=== PATIENT | male | born 1955 | race Caucasian/White ===

== ENCOUNTER → 2017-08-18 | Outpatient (CLI) | payer OTHER ==
[~2017-08-18] MED LIST: ALPRAZOLAM; CARDURA1 MG PO; COZAAR; OXYCODONE HCL5 M1 PO; OXYCONTIN10 M1 PO; PERCOCET 5-3251 EACH PO; SYNTHROID
== END ==
LOC: HYPER 06:57
DX: E11.622 Type 2 diabetes mellitus with other skin ulcer (principal); L89.154 Pressure ulcer of sacral region, stage 4; L98.491 Non-pressure chronic ulcer of skin of other sites limited to breakdown of skin; S80.812A Abrasion, left lower leg, initial encounter; S80.811A Abrasion, right lower leg, initial encounter; E11.51 Type 2 diabetes mellitus with diabetic peripheral angiopathy without gangrene; E11.40 Type 2 diabetes mellitus with diabetic neuropathy, unspecified; I10 Essential (primary) hypertension; E78.5 Hyperlipidemia, unspecified; G89.4 Chronic pain syndrome; M17.11 Unilateral primary osteoarthritis, right knee; Z96.653 Presence of artificial knee joint, bilateral; X58.XXXA Exposure to other specified factors, initial encounter; Y93.89 Activity, other specified; Y92.89 Other specified places as the place of occurrence of the external cause; Y99.8 Other external cause status

== ENCOUNTER → 2017-10-29 | Outpatient (CLI) | payer OTHER ==
[~2017-10-29] MED LIST changes: +ADMELOG100 UNIT/1 PO; -ALPRAZOLAM; +AMBIEN 5 MG TABL5 M1 PO; +ASPIR 8181 MG PO; +COLACE100 MG PO; +DOXYCYCLINE 10100 MG PO; +FLOMAX0.4 MG PO; +GLIPIZIDE 10 MG10 MG PO; +LEVEMIR SUBQ; +LOPRESSOR25 PO; +LOVASTATIN 20 M20 MG PO; +MIRALAX17 GM PO; +NORVASC10 MG PO; +ONDANSETRON HCL4 M2 PO; +OXYCODONE HCL30 MG PO; +OXYCONTIN20 M1 PO; +OXYCONTIN60 MG PO; +PRINIVIL20 MG PO; +PROTONIX40 M1 PO; +ROXICODONE30 M1 PO; +SENNA8.6 MG PO; -SYNTHROID; +SYNTHROID88 MCG PO; +TRAZODONE HCL50 MG PO; +TYLENOL325 MG PO; +UNICOMPLEX M TA1 TA1 PO; +VITAMIN D1000 UNI1 PO; +XANAX 0.5 MG0.5 MG PO; +ZYRTEC 10 MG TA10 MG PO; +[UNRECOGNIZED DRUG - OTHER] PO
== END ==
LOC: HYPER 06:51
DX: E11.622 Type 2 diabetes mellitus with other skin ulcer (principal); L97.811 Non-pressure chronic ulcer of other part of right lower leg limited to breakdown of skin; L89.894 Pressure ulcer of other site, stage 4; L98.491 Non-pressure chronic ulcer of skin of other sites limited to breakdown of skin; S80.211A Abrasion, right knee, initial encounter; E11.40 Type 2 diabetes mellitus with diabetic neuropathy, unspecified; E11.51 Type 2 diabetes mellitus with diabetic peripheral angiopathy without gangrene; I10 Essential (primary) hypertension; I89.0 Lymphedema, not elsewhere classified; G89.4 Chronic pain syndrome; L03.116 Cellulitis of left lower limb; Z96.653 Presence of artificial knee joint, bilateral; Z79.4 Long term (current) use of insulin; Z68.41 Body mass index [BMI] 40.0-44.9, adult; X58.XXXA Exposure to other specified factors, initial encounter; Y93.89 Activity, other specified; Y92.89 Other specified places as the place of occurrence of the external cause; Y99.8 Other external cause status

== ENCOUNTER 2017-12-19 10:37 | Emergency (ER) | payer OTHER, MEDICARE ==
[~2017-12-19] VITALS: Ht 177.8 cm; Wt 131.5 kg
--- NOTE | ~2017-12-19 | EKG ---
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
[2017-12-19] MEDS ORDERED: ASPIRIN325 PO (10:52)
[2017-12-19] MEDS ORDERED: PRAVACHOL20 MG PO (10:57)
[2017-12-19] MEDS ORDERED: ROXICODONE30 M1 PO (10:58)
[2017-12-19] MEDS ORDERED: NOVOLOG100 UNIT/1 SUBQ (10:59)
[2017-12-19 11:46] LABS: HEMATOCRIT 44.1 % (42.0-52.0); MCH 28.6 pg (26.0-34.0); MCV 84.3 fL (80.0-100.0); RBC 5.23 mil/uL (4.50-6.00); RDW 15.4 % (10.5-14.5); WBC 9.3 thou/uL (4.0-11.0)
[2017-12-19 11:54] LABS: ANION GAP 6 mmol/L (7-16); BUN 18 mg/dL (7-18); CALCIUM 9.4 mg/dL (8.5-10.1); CHLORIDE 100 mmol/L (98-107); CO2 28 mmol/L (21-32); GLUCOSE 145 mg/dL (74-106); POTASSIUM 3.7 mmol/L (3.5-5.1); SODIUM 134 mmol/L (136-145)
[2017-12-19 12:02] LABS: ALBUMIN 3.5 g/dL (3.4-5.0); SGOT 26 U/L (15-37); SGPT 47 U/L (30-65); TOTAL BILIRUBIN 0.3 mg/dL (<0.1-1.0); TOTAL PROTEIN 7.8 g/dL (6.4-8.2); TROPONIN-I <0.06 ng/mL (<0.06)
[2017-12-19] MEDS ORDERED: LYRICA 50 MG50 MG PO (12:18)
== END 2017-12-19 13:15 | disposition home or self-care (01) ==
LOC: ER 10:37
PROVIDERS: Emergency Medicine
DX: E11.40 Type 2 diabetes mellitus with diabetic neuropathy, unspecified (principal); I10 Essential (primary) hypertension; B19.20 Unspecified viral hepatitis C without hepatic coma; Z79.4 Long term (current) use of insulin; Z79.899 Other long term (current) drug therapy; Z88.5 Allergy status to narcotic agent; Z88.8 Allergy status to other drugs, medicaments and biological substances; Z91.018 Allergy to other foods

== ENCOUNTER 2018-07-03 13:43 | Inpatient (IN) | payer OTHER, MEDICARE ==
[2018-07-03] VITALS (18 sets, daily range): BP systolic 76–97; BP diastolic 43–54
[~2018-07-03] VITALS: Ht 177.8 cm; Wt 108.0 kg
--- NOTE | ~2018-07-03 | HC ---
[facility] [place] [address] CONSULTATION Name: HORTENCIA PATEL Room #: 241-P [facility] IN M.R.#: [id number] Admission: 07/03/18 ������������������ Attend Phys: Ru Rowe MD Discharge: ������������������ Date of : 51 Report #: [id number] THIS REPORT FOR: //name// CC: Zoltan Rowe [facility] Akkulugari DATE OF SERVICE: 07/06/2018 WOUND CARE CONSULTATION PERSONAL PHYSICIAN: Zoltan Vigil MD CHIEF COMPLAINT: Decubitus ulcers. HISTORY OF PRESENT ILLNESS: This is a 62-year-old white male, with longstanding history of diabetes, who is a penitentiary resident, was brought in to the Emergency Department for septic shock and respiratory failure. The patient, upon admission, was noted to have sacral decubitus ulcers as well as decubitus ulcers on his left lower extremity. The patient himself is in the ICU and somewhat sedated and confused and unable to give much history at this time. Nursing staff states that all these ulcerations were present upon admission. PAST MEDICAL HISTORY: Significant for diabetes, hepatitis C, previous right jrlsq-vzk-cotm knee amputation, hypertension, anxiety, cervical fusion. CURRENT MEDICATIONS: Multiple, I reviewed the patient's medication list. DRUG ALLERGIES: CODEINE, FENTANYL, GABAPENTIN, HEPARIN AND MORPHINE. SOCIAL HISTORY: The patient resides in a care facility. Does not smoke or drink alcohol. FAMILY HISTORY: Not pertinent to current medical condition. REVIEW OF SYSTEMS: Unobtainable secondary to the patient's confused state. PHYSICAL EXAMINATION: VITAL SIGNS: The patient is afebrile. Vital signs are stable. GENERAL: This is an awake and oriented only to person, but not place and time white male who is in the ICU. HEENT: Normocephalic, atraumatic. Mucous membranes are somewhat dry. Pupils are round. Sclerae are white. NECK: Otherwise, supple, nontender. LUNGS: Slightly diminished breath sounds heard throughout. HEART: Regular. [address] [address] CONSULTATION Name: HORTENCIA PATEL Colby Room #: [facility] IN M.R.#: [id number] Admission: 07/03/18 ������������������ Attend Phys: Ru Rowe MD Discharge: ������������������ Date of : 51 Report #: [id number] ABDOMEN: Obese, soft, otherwise nontender. SKIN: In the sacrococcygeal region, there is a deep tissue injury with some ecchymotic regions noted with shearing forces noted along the top of this. Surrounding this is some blanchable erythema. At this time, there is no evidence of any obvious open ulcerations. EXTREMITIES: Right drxoy-zyt-yusb amputation is noted with intact stump. Left lower extremity has superficial abrasions to his left knee and pretibial region as well as a deep tissue injury along the lateral aspect of the left foot. Distal pulses are intact. NEUROLOGIC: Cranial nerves 2-12 grossly intact. Motor and sensory grossly intact. LABORATORY DATA: White count 6.2, hemoglobin 10.2. Potassium is 2.6, albumin is 2.0. IMPRESSION: 1. Deep tissue injury to the sacrococcygeal region, present on admission. 2. Deep tissue injury to the left lateral foot, present on admission. 3. Abrasions, left pretibial region x 2. 4. Diabetes mellitus. 5. Respiratory failure. 6. Protein calorie malnutrition -- severe, albumin 2.0. 7. Generalized debility. PLAN: At this time, we will place barrier cream over the sacrococcygeal decubitus ulcer. We will place the patient on low air loss mattress and will be turned every 2 hours. We will put foam dressings over the left pretibial wounds as well as the left lateral foot ulceration and change 3 times weekly. We will use Prevalon boot on the left foot for protection to the heel. Make sure we maximize the patient's oral protein supplementation when able. When able, we will also utilize physical and occupational therapy for strengthening. We will continue all other current medications and continue to follow the patient. ��������������������������������������������� ���������������������������������������� By: ��������������������������������������������� 0837 [id number] Sebastien Martines MD /britt
[~2018-07-03 13:43] MED LIST changes: +ASPIRIN325 PO; +LYRICA 50 MG50 MG PO; +NOVOLOG100 UNIT/1 SUBQ; +PRAVACHOL20 MG PO
[2018-07-03 14:06] LABS: ABSOLUTE NEUTROPHILS 8.7 thou/uL (1.4-8.2); BASOPHILS 0.7 % (0.0-2.0); HEMOGLOBIN 12.1 gm/dL (14.0-18.0); LYMPHOCYTES 10.9 % (24.0-44.0); MCHC 32.7 g/dL (28.0-37.0); MCV 76.4 fL (80.0-100.0); POLYS 81.4 % (36.0-66.0); RBC 4.84 mil/uL (4.50-6.00); RDW 17.9 % (10.5-14.5); WBC 10.6 thou/uL (4.0-11.0)
[2018-07-03 14:17] LABS: ANION GAP 12 mmol/L (7-16); BUN 49 mg/dL (7-18); CHLORIDE 103 mmol/L (98-107); CO2 25 mmol/L (21-32); CREATININE 6.1 mg/dL (0.7-1.3); GLUCOSE 170 mg/dL (74-106); POTASSIUM 4.2 mmol/L (3.5-5.1); SODIUM 140 mmol/L (136-145)
[2018-07-03 14:26] LABS: TROPONIN-I <0.06 ng/mL (<0.06)
[2018-07-03 14:35] LABS: PLATELET COUNT 157 thou/uL (150-400); PLATELET ESTIMATE NORMAL
[2018-07-03 15:04] LABS: BE(vivo) -2.2 mmol/L (-2 to +3); HCO3 22.2 mmol/L (22.0-26.0); PCO2 36.6 mmHg (35.0-45.0); PO2 130.1 mmHg (80.0-100.0); sO2 98.6 % (92.0-98.0)
[2018-07-03] MEDS ORDERED: NORVASC10 MG PO (15:13)
[2018-07-03] MEDS ORDERED: CARDURA4 MG PO (15:13)
[2018-07-03] MEDS ORDERED: LEVEMIR SUBQ (15:16)
[2018-07-03] MEDS ORDERED: NOVOLOG100 UNIT/1 SUBQ (15:17)
[2018-07-03] MEDS ORDERED: ENOXAPARIN40 MG/0.1 SUBQ (15:20)
[2018-07-03] MEDS ORDERED: ALPRAZOLAM 0.50.5 M1 PO (15:21)
[2018-07-03] MEDS ORDERED: COLACE100 MG PO (15:22)
[2018-07-03] MEDS ORDERED: SYNTHROID88 MCG PO (15:23)
[2018-07-03] MEDS ORDERED: LYRICA 50 MG50 MG PO (15:24)
[2018-07-03] MEDS ORDERED: PRO-STAT LIQUID30 M1 PO (15:25)
[2018-07-03] MEDS ORDERED: METOPROLOL TART25 MG PO (15:25)
[2018-07-03] MEDS ORDERED: FLOMAX0.4 MG PO (15:26)
[2018-07-03] MEDS ORDERED: THEREMS-M1 EACH PO (15:27)
[2018-07-03] MEDS ORDERED: VITAMINC500 PO (15:28)
[2018-07-03] MEDS ORDERED: TRAZODONE HCL50 MG PO (15:28)
[2018-07-03] MEDS ORDERED: VITAMIN D2000 UNIT PO (15:32)
[2018-07-03] MEDS ORDERED: IPRAT-ALBUT 0.5-3 ML INH (15:35)
[2018-07-03] MEDS ORDERED: DILAUDID4 MG PO (15:35)
[2018-07-03] MEDS ORDERED: MIRALAX17 GM PO (15:36)
[2018-07-03] MEDS ORDERED: ONDANSETRON HCL4 M2 PO (15:36)
[2018-07-03] MEDS ORDERED: SENNA8.6 MG PO (15:37)
[2018-07-03 16:54] LABS: ALBUMIN 2.4 g/dL (3.4-5.0); TOTAL PROTEIN 6.9 g/dL (6.4-8.2)
--- NOTE | 2018-07-03 18:43 | NUR ---
ADMITTED PATIENT TO ROOM AT THIS TIME. HE IS ON A BIPAP. TEMP IS STILL HIGH. TYLENOL JUST ADMINISTERED RECTALLY. WILL WAIT TO SEE EFFECTIVENESS. HE IS NOT RESPONISIVE TO VOICE OR TOUCH.
[2018-07-03 18:59] LABS: TSH 1.777 uIU/mL (0.358-3.740)
[2018-07-03 21:52] LABS: ABSOLUTE NEUTROPHILS 7.8 thou/uL (1.4-8.2); BASOPHILS 0.3 % (0.0-2.0); EOSINOPHILS 0.2 % (0.0-3.0); HEMATOCRIT 38.7 % (42.0-52.0); HEMOGLOBIN 12.3 gm/dL (14.0-18.0); LYMPHOCYTES 10.9 % (24.0-44.0); MCH 24.9 pg (26.0-34.0); MCHC 31.8 g/dL (28.0-37.0); MCV 78.2 fL (80.0-100.0); MONOCYTES 5.7 % (1.0-8.0); PLATELET COUNT 149 thou/uL (150-400); POLYS 82.9 % (36.0-66.0); RBC 4.96 mil/uL (4.50-6.00); RDW 18.7 % (10.5-14.5); WBC 9.4 thou/uL (4.0-11.0)
[2018-07-03 22:02] LABS: APTT 49.9 Seconds (24.5-32.8); CALCIUM 7.6 mg/dL (8.5-10.1); CREATININE 6.7 mg/dL (0.7-1.3); FIBRINOGEN 502.4 mg/dL (210-360); INR 1.3; POTASSIUM 3.8 mmol/L (3.5-5.1); PROTIME 13.1 Seconds (9.3-11.4)
[2018-07-03 22:09] LABS: ALBUMIN 2.2 g/dL (3.4-5.0); TOTAL BILIRUBIN 0.8 mg/dL (<0.1-1.0); TOTAL PROTEIN 6.7 g/dL (6.4-8.2)
[2018-07-03 22:30] LABS: BE(vivo) -6.6 mmol/L (-2 to +3); HCO3 18.2 mmol/L (22.0-26.0); PCO2 33.9 mmHg (35.0-45.0); PO2 83.4 mmHg (80.0-100.0); pH 7.347 (7.360-7.450); sO2 95.9 % (92.0-98.0)
--- NOTE | 2018-07-03 22:40 | NUR ---
Pt is being transfered to ICU due to hypotensive and severe sepsis. He appears lethargic and somnolent. Open eyes for painful stimulation. Current on BIPAP. BP/MAP low noted. NS bolus is in progress. He has fever of 102.6 upon arrival. Cold wash clots applied. Hx obtained from old medical record and NH recrods. Assessmetn is completed. Will start sepsis protocol as orders.
--- NOTE | 2018-07-03 23:00 | NUR ---
Pt is not able to sign consent for central line placement due to altered mental status changes. This RN attempted to call emergency contact w/o any success. It seems like phone number that provide by [facility] isn't correct. Will notify when he gets here.
--- NOTE | 2018-07-03 23:58 | NUR ---
PT LETHAGIC BUT OPENS EYES AND RESPONDS TO VERBAL AND PAINFUL STIMULI. SOFT BP. O2 SATS STABLE ON BIPAP. MINIMAL URINE OUTPUT FROM GURROLA. HR STABLE. SEPSIS SCREEN POSITIVE. NOTIFIED PROJECT PRODUCTION ENGINEER SCENIC ARTIST FOR HOSPITALIST OF PATIENT STATUS. DR STOCKTON ROUNDED ON PATIENT. ORDER RECEIVED TO TRANSFER PT TO ICU FOR SEPSIS PROTOCOL. PT TRANSFERED TO ICU AROUND 2213. REPORT GIVEN TO ALTERATION WORKROOM SUPERVISOR AT BEDSIDE.
[2018-07-04] VITALS (101 sets, daily range): BP systolic 95–132; BP diastolic 52–75
[2018-07-04 02:11] LABS: CALCIUM 7.3 mg/dL (8.5-10.1); CREATININE 6.5 mg/dL (0.7-1.3); POTASSIUM 3.9 mmol/L (3.5-5.1)
[2018-07-04 03:24] LABS: URINE BILIRUBIN 1+ (Negative); URINE BLOOD 3+ (Negative); URINE CLARITY CLOUDY; URINE COLOR YELLOW; URINE GLUCOSE-RANDOM* NEGATIVE (Negative); URINE KETONES TRACE (Negative); URINE NITRITE-REFLEX NEGATIVE (Negative); URINE PROTEIN (DIPSTICK) 2+ (Negative); URINE SPECIFIC GRAVITY 1.025 (1.005-1.035); URINE UROBILINOGEN 0.2 E.U./dl (0.2-1.0)
[2018-07-04 03:33] LABS: URINE LEUKOCYTES-REFLEX 3+ (Negative)
[2018-07-04 03:36] LABS: CASTS None Seen /LPF (None Seen); CRYSTALS None Seen /LPF (None Seen); MUCUS 4-6 Moderate strn/LPF (None Seen); SQUAMOUS 0-3 Few /LPF (0-3); URINE WBC-REFLEX >25 Many /HPF (0-5); WBC CLUMPS Moderate (None Seen)
[2018-07-04 05:51] LABS: HEMATOCRIT 35.4 % (42.0-52.0); HEMOGLOBIN 11.4 gm/dL (14.0-18.0); MCH 24.9 pg (26.0-34.0); MCHC 32.1 g/dL (28.0-37.0); MCV 77.5 fL (80.0-100.0); RBC 4.57 mil/uL (4.50-6.00); RDW 18.3 % (10.5-14.5); WBC 9.9 thou/uL (4.0-11.0)
[2018-07-04 06:02] LABS: CALCIUM 7.2 mg/dL (8.5-10.1); CREATININE 6.6 mg/dL (0.7-1.3); MAGNESIUM 1.7 mg/dL (1.8-2.4); POTASSIUM 3.9 mmol/L (3.5-5.1)
--- NOTE | 2018-07-04 07:00 | NUR ---
Pt remains in critical conditions. He is more reponses this am. Urine output has been picking up some. MAP > 65 mmHg with pressor. BS elevated this am. Start insulin gtt per protocol. Report handed of to am shift RN.
--- NOTE | 2018-07-04 08:53 | NUR ---
ORDER REC'D FOR OT EVAL. TRANSFER TO ICU AND WILL BE PLACED ON HOLD PER PROTOCOL. WILL AWAIT RESUME OT ORDERS WHEN APPROPRIATE.
[2018-07-04] MEDS ORDERED: CYCLOBENZAPRINE5 MG PO (09:38)
[2018-07-04] MEDS ORDERED: MUCINEX600 MG PO (09:39)
[2018-07-04] MEDS ORDERED: OXYCONTIN40 MG PO (09:40)
[2018-07-04 11:46] LABS: URINE CREATININE-RANDOM* 125.6 mg/dL
[2018-07-04 12:08] LABS: BE(vivo) -5.9 mmol/L (-2 to +3); HCO3 19.9 mmol/L (22.0-26.0); PCO2 40.3 mmHg (35.0-45.0); PO2 66.3 mmHg (80.0-100.0); sO2 91.5 % (92.0-98.0)
[2018-07-04 12:09] LABS: pH 7.312 (7.360-7.450)
[2018-07-04 14:02] LABS: CALCIUM 7.4 mg/dL (8.5-10.1); POTASSIUM 3.5 mmol/L (3.5-5.1)
--- NOTE | 2018-07-04 18:37 | NUR ---
END OF SHIFT NOTE. PT COMPLETED SEPSIS PROTOCOL TODAY. LEVOPHED AT 2MCG/MIN URINE OUTPUT IMPROVED. TOLORATING BIPAP. CT ABD CALLED TO DR. STOCKTON AND DR. BENAVIDES. ULTRA SOUND OF ABD DONE TODAY. INSULIN GTT. MORE ALERT, FOLLOWS COMMANDS, CONFUSED SPEECH AT TIMES. CREAM TO SACRAL WOUND.
[2018-07-05] VITALS (55 sets, daily range): BP systolic 93–137; BP diastolic 46–76
[2018-07-05 05:04] LABS: BE(vivo) -4.9 mmol/L (-2 to +3); PCO2 36.5 mmHg (35.0-45.0); PO2 86.2 mmHg (80.0-100.0); pH 7.357 (7.360-7.450); sO2 96.2 % (92.0-98.0)
[2018-07-05 05:09] LABS: HEMOGLOBIN 10.3 gm/dL (14.0-18.0); MCH 24.7 pg (26.0-34.0); MCHC 32.1 g/dL (28.0-37.0); MCV 77.1 fL (80.0-100.0); RBC 4.15 mil/uL (4.50-6.00); RDW 18.3 % (10.5-14.5); WBC 8.5 thou/uL (4.0-11.0)
[2018-07-05 05:22] LABS: ALBUMIN 1.9 g/dL (3.4-5.0); CALCIUM 7.2 mg/dL (8.5-10.1); CREATININE 5.3 mg/dL (0.7-1.3); POTASSIUM 3.3 mmol/L (3.5-5.1); TOTAL BILIRUBIN 0.4 mg/dL (<0.1-1.0); TOTAL PROTEIN 5.4 g/dL (6.4-8.2)
--- NOTE | 2018-07-05 08:02 | NUR ---
ASSUMED CARE OF PT AT 1900. PT REMAINS DROWSY, DOES WAKE UP AND FOLLOW COMMANDS. ORIENTED TO SELF AND PLACE. REMAINS FORGETFULL ON RECENT EVENTS. PT CONTRACTED ON HIS HANDS AND L LEG. SR ON THE MONITOR. PT TITRATED OFF LEVO GTT AT 0230. TOLERATING WELL. IMPROVED UO. NO BM, BUT PT PASSING FLATUS. PT TURNED Q2 HOUR AND GIVEN A BATH THIS AM. PT MAKING PROGRESS TOWARDS GOALS.
--- NOTE | 2018-07-05 11:12 | HC ---
[facility] [place] [address] CONSULTATION Name: HORTENCIA PATEL Colby Room #: 241-P [facility] IN M.R.#: [id number] Admission: 07/03/18 ������������������ Attend Phys: Ru Rowe MD Discharge: ������������������ Date of : 51 Report #: [id number] THIS REPORT FOR: //name// CC: Zoltan Rowe Amos Akkulugari DATE OF SERVICE: 07/04/2018 REASON FOR CONSULTATION: I was asked to evaluate concerning septic shock, acute renal failure in the setting of diabetes. HISTORY OF PRESENT ILLNESS: The patient is a 62-year-old [facility] resident, at [facility] with a history of diabetes, hypertension, marked debility, was found very short of breath and nonverbal yesterday afternoon. By report, an hour earlier, he was doing reasonably well. EMS was called. He was found to be hypoxic and hypertensive. Given nitro paste. Placed on BiPAP. Ultimately intubated. In the Emergency Room, he was hypotensive. He was found to be in acute renal failure with a creatinine up to 6. Indwelling Lrason catheter was placed. He now is on BiPAP. He is verbal now. Has complained of some lower abdominal discomfort. No vomiting. Intermittent loose cough with minimal sputum production. No chest pain. No nausea or vomiting. He has been constipated. He does have sacral decubitus. He had a previous right AKA. REVIEW OF SYSTEMS: A 10-point review of systems is negative other than described above. PAST MEDICAL HISTORY: Cellulitis, diabetes, hepatitis C, urinary retention, hypertension, BPH, anxiety, back surgeries, knee surgery, abdominal surgery, cervical fusion. ALLERGIES: CODEINE, FENTANYL, GABAPENTIN, HEPARIN, MORPHINE. MEDICATIONS: As noted on his MAR, which were reviewed including vancomycin, Zosyn and Levaquin. FAMILY HISTORY: Noncontributory. SOCIAL HISTORY: Nonsmoker. Does use alcohol. No recreational drugs. PHYSICAL EXAMINATION: VITAL SIGNS: Maximum temperature is 102.9 degrees, currently afebrile, blood pressure improved on Levophed drip. He has received over 4 liters of IV fluid. GENERAL: He was obese. He was on BiPAP. He was verbal and appeared oriented. SKIN: With wounds to his sacrum. There are some excoriations. There was some evidence of bruising. No other rashes. [facility] [address] [place] [address] CONSULTATION Name: HORTENCIA PATEL Room #: 241-P [facility] IN M.R.#: [id number] Admission: 07/03/18 ������������������ Attend Phys: Ru Rowe MD Discharge: ������������������ Date of : 51 Report #: [id number] HEENT: Eyes without scleral icterus. Mouth without mucositis. NECK: Supple. No palpable adenopathy. LUNGS: Coarse bilaterally, mostly in the bases. HEART: Regular, without murmur, gallop or rub. ABDOMEN: Obese. Mildly distended, had no hepatosplenomegaly. No definite mass. EXTREMITIES: Without cyanosis, clubbing or edema. He has a right AKA with incision well approximated. Right IJ catheter site unremarkable with no erythema or drainage. Cranial nerves intact. Able to move both upper and lower extremities. LABORATORY STUDIES: Procalcitonin 10.6, lactate 1.5, hemoglobin 11.4, WBC 9.9 with normal differential, platelet count 141,000. Sodium 137, potassium 3.9, bicarbonate 20, creatinine 6.6. Liver function test normal. Blood culture is negative today. Chest x-ray with bibasilar atelectasis, infiltrate. Urinalysis, many wbc's, rbc's and positive urine for bacteria. Urine culture is pending. IMPRESSION: A 62-year-old [facility] resident with: 1. Multisystem failure including respiratory failure, encephalopathy and acute renal failure. Does have evidence of cystitis. I am awaiting imaging studies to further evaluate the abdomen. Unclear if he is obstructed at this time. 2. Respiratory failure with basilar atelectasis, infiltrates. Could have aspirated during this event or leading up to it. His encephalopathy has improved after hydration and oxygen supplementation. No evidence at this time to support stroke. 3. Underlying diabetes. Unclear as to his renal function predating this. 4. Previous right lower extremity amputation. RECOMMENDATION: We will continue with broad antibiotic coverage for both healthcare-associated pneumonia and urinary tract infection. He will remain in ICU on sepsis protocol. IV fluids and vasopressors as necessary. Nephrology is assisting in his acute renal failure. Monitor and treat diabetes, blood glucose control. We will adjust his antibiotics pending further cultures. ��������������������������������������������� <ELECTRONICALLY SIGNED> ���������������������������������������� By: Juancho Humphreys MD ��������������������������������������������� 07/05/18 1112 1125 0010 Juancho Humphreys MD /nt
--- NOTE | 2018-07-05 11:27 | NUR ---
VASCULAR ACCESS ROUNDING- PATIENT CONTINUES IN ICU ON 2 IV ANTIBIOTICS AND CENTRAL ACCESS IS NEEDED FOR CVP MONTINORING AT THIS TIME- LINE CONTINUES TO BE APPROPRIATE
--- NOTE | 2018-07-05 11:50 | NUR ---
SEE ASSESSMENT FOR DETAILS. INSULIN GTT DC'D. DENIES DISCOMFORT, SR, TOLERATING BIPAP, NPO, GURROLA WITH ADEQUATE URINE OUTPUT. DISCUSSED RISKS AND BENEFITS OF NEPHROSTOMY TUBE, CONSENT SIGNED. PT TRANSFERRED WITH ASSIST OF INTERVENTIONAL RADIOLOGY STAFF WITH STUDIO ASSISTANT ON ICU BED TO RADIOLOGY.
--- NOTE | 2018-07-05 13:17 | EKG ---
[address] [place] [address] ELECTROCARDIOGRAM REPORT Name: HORTENCIA PATEL Room #: 241-P ADM IN M.R.#: [id number] ������������������ Admission: 07/03/18 ������������������ Attend Phys: Ru Rowe MD Discharge: ������������������ Date of : 51 Report #: [id number] ����������������������������������������������������������������� [id number] THIS REPORT FOR: //name// [facility] ED Test Date: 2018-07-03 Test Time: 13:44:47 Pat Name: HORTENCIA PATEL Department: Room: 241 Gender: M Radiation Monitor: ANDREI : 1955 Requested By: Order Number: [id number] MD: Alvarado Luna Measurements Intervals [place] Rate: 101 P: 41 MN: 160 QRS: 72 QRSD: 58 T: -31 QT: 371 QTc: 481 Interpretive Statements Sinus tachycardia Nonspecific ST and T wave abnormality Borderline prolonged QT interval Compared to ECG 12/19/2017 11:25:30 ST and T wave abnormality is now present QT interval has lengthened Electronically Signed On 07-05-2018 13:17:14 CDT by Alvarado Luna [email or web address] ��������������������������������������������� <ELECTRONICALLY SIGNED> ���������������������������������������� By: Alvarado Luna MD, [facility] ��������������������������������������������� 07/05/18 1317 1344 1344 Alvarado Luna MD, [facility] /EPI
--- NOTE | 2018-07-05 14:00 | NUR ---
RETURNED FROM INTERVENTIONAL RADIOLOGY PER ICU BED. MARTIN NEPHROSTOMY STENTS INTACT- L SIDE DRAINING DARK YELLOW, PINKISH TINGED URINE, R SIDE SCANT PINK TINGED URINE. PT ALERT/ORIENTED X 2, TALKING, CHIN TREMBLING, WARM BLANKET APPLIED.
--- NOTE | 2018-07-05 19:15 | NUR ---
DISCOMFORT CONTROLLED WITH REPOSITIONING. POSITIONING PT OFF COCCYX MUCH POSSIBLE RELATED TO SKIN BREAKDOWN, HOWEVER WHEN POSITIONED ON SIDE, PT IS POSITIONED ON EITHER SIDE, HE IS DIRECTLY ON STOPCOCK OF NEPHROSTOMY DRAIN. NEPHROSTOMY DRAINING YELLOW URINE. TOLERATING BIPAP AND PT SITTING UPRIGHT WHEN USING THICKENED WATER TO SWAB PT'S MOUTH. PT VERY SLOWLY PROGRESSING.
[2018-07-06] VITALS (15 sets, daily range): BP systolic 101–144; BP diastolic 51–74
[2018-07-06 04:22] LABS: HEMATOCRIT 31.4 % (42.0-52.0); HEMOGLOBIN 10.3 gm/dL (14.0-18.0); MCHC 32.9 g/dL (28.0-37.0); MCV 76.2 fL (80.0-100.0); RBC 4.12 mil/uL (4.50-6.00); WBC 8.8 thou/uL (4.0-11.0)
[2018-07-06 04:27] LABS: ALBUMIN 1.9 g/dL (3.4-5.0); CALCIUM 7.9 mg/dL (8.5-10.1); PHOSPHORUS 3.7 mg/dL (2.5-4.9)
[2018-07-06 04:29] LABS: CREATININE 2.5 mg/dL (0.7-1.3); POTASSIUM 2.3 mmol/L (3.5-5.1)
--- NOTE | 2018-07-06 05:17 | NUR ---
ASSESSMENT DOCUMENTED. RECEIVED WITH CVP CLOTTED , UNABLE TO CONTINUE CVP MONITORING. COMPLAINT OF GENERALIZED PAIN, PRN MEDS GIVEN. MAINTAINED ON NPO. STILL ON BIPAP. K CRITICAL RESULT, URINE OUTPUT, BP AND OTHER LAB RESULTS RELAYED TO DR RODRIGUEZ WITH ORDERS GIVEN AND CARRIED OUT. BM NOTED, PERIANAL CARE DONE, GURROLA CARE DONE, TURNING Q 2 HOURS DONE. ORAL CARE DONE. MAINTAINED ON ISOLATION PRECAUTION. FF UP POC.
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
--- NOTE | 2018-07-06 11:02 | NUR ---
Nutrition: Pt seen due to low casey score. Admit with HCAP, UTI. Pulmonary status improving per nsg. Redness/inflammation to sacrum. S/P bilateral nephrostomy tube placement for UPJ stones. Diet advanced to regular and pt reports good appetite with intentional weight loss per hx. Physician has documented severe malnutrition-defer. Pt does not desire supplements. Follow po intake trends. Low nutrition risk.
--- NOTE | 2018-07-06 15:25 | NUR ---
FAXED CLINICAL UPDATE TO CENTER SPOKE WITH RAUL IN ADM. SHE RECEIVED UPDATE. DCP TO FOLLOW.
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
[2018-07-06 17:49] LABS: HEMATOCRIT 31.2 % (42.0-52.0); HEMOGLOBIN 10.2 gm/dL (14.0-18.0); MCH 24.8 pg (26.0-34.0); MCHC 32.6 g/dL (28.0-37.0); MCV 76.1 fL (80.0-100.0); RBC 4.11 mil/uL (4.50-6.00); RDW 17.8 % (10.5-14.5); WBC 6.2 thou/uL (4.0-11.0)
--- NOTE | 2018-07-06 19:15 | NUR ---
REPORT RECEIVED AT O900, REPORT RECEIVED FROM KYRA CUNNINGHAM RN. SHIFT SUMMARY: IV PAIN MED GIVEN FOR GENERALIZED PAIN X 1, PT ALERT, COOPERATIVE, VERY FLAT EFFECT, SR, REMAINED ON 2L/NC, STRONG COUGH, CLEARS THROAT, TOLERATING DIET, LARGE AMOUNT OF URINE OUTPUT FROM MARTIN NEPHROSTOMY DRAINS, SMALL AMOUNT URINE FROM GURROLA. WOUND CARE PRESENT. PT PROGRESSING. MED SURG/TELE STATUS, REMAINS IN ICU.
[2018-07-07] VITALS (13 sets, daily range): BP systolic 102–143; BP diastolic 47–79
[2018-07-07 05:14] LABS: HEMATOCRIT 30.9 % (42.0-52.0); HEMOGLOBIN 10.2 gm/dL (14.0-18.0); MCH 24.8 pg (26.0-34.0); MCHC 33.1 g/dL (28.0-37.0); RBC 4.12 mil/uL (4.50-6.00); RDW 17.7 % (10.5-14.5); WBC 6.2 thou/uL (4.0-11.0)
[2018-07-07 05:16] LABS: CALCIUM 7.6 mg/dL (8.5-10.1); PHOSPHORUS 1.4 mg/dL (2.5-4.9)
[2018-07-07 05:23] LABS: CREATININE 0.9 mg/dL (0.7-1.3); POTASSIUM 2.7 mmol/L (3.5-5.1)
--- NOTE | 2018-07-07 08:31 | NUR ---
WOUND CONSULT: PT. WAS SEEN ON 07/06/[address] ALEXANDRA AND MYSELF. PT. IS WELL KNOWN TO THE WOUND CARE TEAM. PT. HAS DEEP TISSUE INJURY PRESSURE ULCERS TO HIS SACRUM AND LEFT LATERAL ANKLE ALONG WITH ABRASIONS TO HIS LEFT KNEE AND LEFT DIALLO. PT. WOUNDS SHOW NO SIGNS OR SYMPTOMS OF INFECTION AT THIS TIME. RECOMMENDATIONS: WOUND CARE TO LEFT KNEE AND DIALLO: GENTLY CLEANSE WITH WOUND CLEANSER OR NORMAL SALINE, COVER WITH OPTIFOAM BORDER, COMPLETE CARES M/W/F AND PRN SOILAGE. WOUND CARE TO SACRUM: GENTLY CLEANSE AREA WITH WOUND CLEANSER OR NORMAL SALINE, APPLY MOISTURE BARRIER CREAM, LEAVE OPEN TO AIR, COMPLETE CARES DAILY AND PRN. TURN Q2 HOURS KEEP PT. OFF WOUNDS MUCH POSSIBLE KEEP ON ANT MATRESS. WOUND CARE TO LEFT LATERAL ANKLE: LEAVE WOUND OPEN TO AIR, KEEP PT. FOOT IN A HEEL PROTECTOR BOOT FOR OFFLOADING AND WOUND HEALING. PT. AND STAFF NURSE WERE INSTRUCTED ON PLAN OF CARE.
--- NOTE | 2018-07-07 14:15 | NUR ---
SHIFT SUMMARY: ALERT TO PERSON, VERY FLAT EFFECT, DENIES DISCOMFORT, REFUSING TO PARTICIPATE IN CARE AND REFUSING MEALS, COMPAZINE GIVEN FOR NAUSEA WITH RELIEF. SR, CONTINUING TO REPLACE POTASSIUM BOTH PO AND IV, 2L/NC, FAIR COUGH EFFORT- NO SECRETIONS, BILATERAL NEPHROSTOMY TUBES DRAINING CLEAR YELLOW URINE. LOOSE STOOLS X 2. WOUND CARE PRESENT, PRAFO BOOT PLACED ON L LOWER EXTREMITY.
--- NOTE | 2018-07-07 15:50 | NUR ---
WOUND FOLLOW UP: PT. WAS SEEN TODAY BY DR. WILKES AND MYSELF. PT. WOUNDS ARE ALL STABLE AT THIS TIME. RECOMMENDATIONS: CONTINUE WITH CURRENT PLAN OF CARE. PT. AND STAFF NURSE WERE INSTRUCTED ON PLAN OF CARE.
--- NOTE | 2018-07-07 17:07 | NUR ---
FOLLOWING FOR DC PLANNING. [facility] ACCEPTS FOR LTACH STAY AND PT AND DPOA BULL LUQUE AGREEABLE TO THIS PLAN. UPDATED RAUL IN ADMISSIONS AT [facility]. PER DR. STOCKTON, POSSIBLE READY FOR LTACH TRANSITION 07/08/18. PT/OT HAS TRIED TO WORK WITH PT HERE BUT PT HAS REFUSED. RN INDICATED DR. ZHANG WANTED PT TO BE MEASURED FOR RLE PROSTHESIS. PT IS VERY POOR HISTORIAN AND DPOA BULL INDICATED PT DID WEEKS OF SKILLED REHAB PRIOR TO LTC. BULL INDICATED PT DIDN'T LIKE TO FOLLOW THERAPIST'S RECOMMENDATIONS AND AT TIMES BECAME ANGRY AT THOSE TRYING TO WORK WITH HIM. PT IS DEPENDENT FOR ADLS, AND TRANSFERS WITH LIFT DEVICE AT FACILITY. EBENEZER FROM [facility] WORKED WITH PT TODAY AND PT IS DEPENDENT FOR TRUNK SUPPORT IN SITTING POSITION. PT'S LEFT LEG WITH POOR ROM AND PT CANNOT TOLERATE BEARING WEIGHT ON LLE AND SO AT PRESENT IS POOR CANDIDATE FOR RLE PROSTHESIS FOR AMBULATION.
--- NOTE | 2018-07-07 18:45 | NUR ---
PT CONTINUED TO REST DURING SHIFT, EASILY AWAKENED. REFUSED PM MEAL.
[2018-07-07 20:51] LABS: CALCIUM 7.7 mg/dL (8.5-10.1); CREATININE 0.7 mg/dL (0.7-1.3); MAGNESIUM 1.5 mg/dL (1.8-2.4); PHOSPHORUS 1.7 mg/dL (2.5-4.9); POTASSIUM 3.6 mmol/L (3.5-5.1)
[2018-07-08] VITALS: BP 105/60
[2018-07-08 04:00] VITALS: BP 142/72
--- NOTE | 2018-07-08 05:29 | NUR ---
PT AXO2, CONFUSED, FORGET. C/O PAIN, MEDICATED PER ORDERS. VSS. AFEBRILE. ON 2L NC, O2 SATS ABOVE 90%. FREQUENT BM DURING THE NIGHT. NEPHROSTOMY TUBES PATENT AND IN PLACE, OUTPUT NOTED. ELECTROLYTES REPLACED. FREQUENT TURNS DURING THE NIGHT. NO COMPLAINS PRESENTLY. PT PROGRESSING TOWARDS GOALS. WILL CONTINUE TO MONITOR
[2018-07-08 06:15] LABS: ALBUMIN 1.9 g/dL (3.4-5.0); CALCIUM 7.4 mg/dL (8.5-10.1); CREATININE 0.7 mg/dL (0.7-1.3); MAGNESIUM 1.5 mg/dL (1.8-2.4); PHOSPHORUS 1.6 mg/dL (2.5-4.9); POTASSIUM 3.7 mmol/L (3.5-5.1)
[2018-07-08 08:00] VITALS: BP 132/79
[2018-07-08 12:00] VITALS: BP 120/67
--- NOTE | 2018-07-08 13:49 | NUR ---
MEDICALLY STABLE PER DR. PEOPLES, TAMI, AND TETE FOR TRANSITION OF CARE TO [facility] TODAY. CHART COPIED. [facility] AMBULANCE PICK TIME 1900 PER [facility] REQUEST R/T DISCHARGES AT FACILITY. GOING TO ROOM 213. RN GIVEN # FOR REPORT AND UPDATED. PT AGREEABLE TO DC PLAN. NOTIFIED BULL LUQUE, PT'S FRIEND OF DC PLAN.
--- NOTE | 2018-07-08 14:16 | NUR ---
WOUND FOLLOW UP: PT. WAS SEEN TODAY BY DR. WILKES AND MYSELF. PT. WOUNDS ARE ALL STABLE AT THIS TIME AND PT. HAS NO CONCERNS IN REGARDS TO HIS WOUNDS. RECOMMENDATIONS: CONTINUE WITH CURRENT PLAN OF CARE. PT. AND STAFF NURSE WERE INSTRUCTED ON PLAN OF CARE.
[2018-07-08 16:00] VITALS: BP 125/63
--- NOTE | 2018-07-08 17:02 | NUR ---
PT IS ALERT AND ORIENTED X4. LUNGS ARE CLEAR TO DIMINISHED. ON 2 LITERS NASAL CANULA. SINUS RHYTHM WITH PAC. CARB CONTROL DIET TOLERATING WELL. NEPHROSTOMY TUBE BILATERAL. GURROLA TO DD WITH YELLOW URINE PRESENT. TURN Q 2 HOURS AND REPOSITION. PT HAS HAD LOOSE SOFT BOWEL MOVEMENTS NOTED TODAY BROWN. ANXIETY MEDS AND PAIN MEDS GIVEN. FAMILY TODAY AT BEDSIDE TO VISIT WITH PT. NO ISSUES OR CONCEERNS NOTED AT THIS TIME. WILL CONTINUE TO MONITOR AND ASSESS PER NURSING.
[2018-07-08 20:00] VITALS: BP 118/65
[2018-07-09] VITALS (10 sets, daily range): BP systolic 100–143; BP diastolic 56–70
[2018-07-09 06:29] LABS: ALBUMIN 2.2 g/dL (3.4-5.0); CALCIUM 7.4 mg/dL (8.5-10.1); CREATININE 0.6 mg/dL (0.7-1.3); MAGNESIUM 1.4 mg/dL (1.8-2.4); PHOSPHORUS 3.2 mg/dL (2.5-4.9); POTASSIUM 3.8 mmol/L (3.5-5.1)
--- NOTE | 2018-07-09 06:44 | NUR ---
PT AOX2, CONFSUDED AND FORGETFUL. SEVERAL ATTEMPTS TO REFUSE TURNS AND CARE DURING THE NIGHT. PT HAD TO BE EDUCATED ABOUT CARE PLACE. MEDICATED FOR PAIN RELIEVE. VSS. AFEBRILE. SR TO ST ON MONITOR. ON 2L NC, NO APPARENT DISTRESS AT REST. FREQUENT BOWEL MOVEMENT DURING THE NIGHT. PT HAD AN UNMEASURABLE EMESIS THIS AM. NEPHROSTOMY TUBES IN PLACE AND DRAINING. FREQUENT TURNS. WILL CONTINUE TO MONITOR. SLOWING PROGRESSING TOWARDS GOALS.
--- NOTE | 2018-07-09 14:49 | NUR ---
PT IS ALERT AND ORIENTED X2 FORGETFULL AT TIMES. LUNGS ARE CLEAR TO DIMINISHED. 02 ON AT 2LITERS NASAL CANULA. CARB CONTROL DIET. NOT MUCH OF APPETITE TODAY WAS NAUSEUATED THIS AM. NEPHROTOMY TUBES BILATERAL. ABDOMEN IS ROUND AND SOFT. BARRIER CREAM TO COCCYX AREA. AND TURN Q 2 HOURS. COMPLAINS OF PAIN AND ANXIETY MEDS GIVEN FOR COMPLAINTS AND NOW IS SLEEPING. VS STABLE. POSSIBLE TRANSFER TO [facility]. AWAITING STATUS. WILL CONTINUE TO ASSESS AND MONITOR PER NURSING IN ISOLATION FOR MRSA NARES.
[2018-07-09] MEDS ORDERED: LANTUS100 UNIT/M SUBQ (15:41)
[2018-07-09] MEDS ORDERED: ZOSYN 3.373.375 GM/1 IV (15:42)
[2018-07-09] MEDS ORDERED: VANCO 1 GR1 GM/250 M IVPB (15:43)
--- NOTE | 2018-07-09 15:49 | NUR ---
HEARD FROM [facility] CONFIRMING BENEFITS APPROVED AND CAN ACCEPT TODAY TO RM 304 REQUESTING AMBULANCE [facility] LINE TIME 1900. [facility] AMBULANCE SET UP. DC ORDERS FAXED PER DC AIRPORT OPERATIONS SPECIALIST. RN GIVEN # FOR REPORT. PT'S FRIEND BULL LUQUE NOTIFIED AND PT IS AGREEABLE TO DC PLAN. RAUL AT CENTER UPDATED.
--- NOTE | 2018-07-09 15:50 | NUR ---
ARRANGED TRANSPORT VIA AMBULANCE ([facility]) FOR 1914 TODAY. NOTIFIED UNIT OF TIME.
--- NOTE | 2018-07-09 19:55 | NUR ---
Pt left ICU with stable condition with [facility]. All belonging are sent to [place] with him.
== END 2018-07-09 19:55 | DRG 871 ==
LOC: ER 13:43 → EROBS 16:21 → ICU 16:21 → 3W 17:26 → ICU 22:20
PROVIDERS: Emergency Medicine; Hospitalist; Internal Medicine Nephrology; Pediatrics; ADMIT Internal Medicine
PROC: 02H633Z Insertion of Infusion Device into Right Atrium, Percutaneous Approach (ICD-10-PCS; principal; 2018-07-03)
PROC: 5A09357 Assistance with Respiratory Ventilation, Less than 24 Consecutive Hours, Continuous Positive Airway Pressure (ICD-10-PCS; principal; 2018-07-03)
PROC: 5A09357 Assistance with Respiratory Ventilation, Less than 24 Consecutive Hours, Continuous Positive Airway Pressure (ICD-10-PCS; 2018-07-04)
PROC: 5A09357 Assistance with Respiratory Ventilation, Less than 24 Consecutive Hours, Continuous Positive Airway Pressure (ICD-10-PCS; 2018-07-05)
PROC: 0T9130Z Drainage of Left Kidney with Drainage Device, Percutaneous Approach (ICD-10-PCS; 2018-07-05)
PROC: BT1D1ZZ Fluoroscopy of Right Kidney, Ureter and Bladder using Low Osmolar Contrast (ICD-10-PCS; 2018-07-05)
PROC: 0T763DZ Dilation of Right Ureter with Intraluminal Device, Percutaneous Approach (ICD-10-PCS; 2018-07-05)
PROC: 0T9030Z Drainage of Right Kidney with Drainage Device, Percutaneous Approach (ICD-10-PCS; 2018-07-05)
PROC: 5A09357 Assistance with Respiratory Ventilation, Less than 24 Consecutive Hours, Continuous Positive Airway Pressure (ICD-10-PCS; 2018-07-06)
DX: A41.9 Sepsis, unspecified organism (principal); R65.21 Severe sepsis with septic shock; J96.01 Acute respiratory failure with hypoxia; J18.9 Pneumonia, unspecified organism; E43 Unspecified severe protein-calorie malnutrition; N17.9 Acute kidney failure, unspecified; G93.40 Encephalopathy, unspecified; N39.0 Urinary tract infection, site not specified; E11.9 Type 2 diabetes mellitus without complications; N40.0 Benign prostatic hyperplasia without lower urinary tract symptoms; E66.9 Obesity, unspecified; F41.9 Anxiety disorder, unspecified; G89.4 Chronic pain syndrome; I11.0 Hypertensive heart disease with heart failure; S30.0XXA Contusion of lower back and pelvis, initial encounter; S90.32XA Contusion of left foot, initial encounter; S80.812A Abrasion, left lower leg, initial encounter; G47.10 Hypersomnia, unspecified; I50.9 Heart failure, unspecified; N13.9 Obstructive and reflux uropathy, unspecified; E87.6 Hypokalemia; E83.42 Hypomagnesemia; E83.39 Other disorders of phosphorus metabolism; B95.8 Unspecified staphylococcus as the cause of diseases classified elsewhere; Z88.6 Allergy status to analgesic agent; Z88.8 Allergy status to other drugs, medicaments and biological substances; Z68.34 Body mass index [BMI] 34.0-34.9, adult; Z89.611 Acquired absence of right leg above knee; X58.XXXA Exposure to other specified factors, initial encounter; Y93.89 Activity, other specified; Y92.89 Other specified places as the place of occurrence of the external cause; Y99.8 Other external cause status
CPT/HCPCS: 10078

== ENCOUNTER 2018-09-07 10:50 | Inpatient (IN) | payer OTHER, MEDICARE ==
[~2018-09-07] VITALS: Ht 152.4 cm; Wt 106.9 kg
[2018-09-07] VITALS (37 sets, daily range): BP systolic 70–135; BP diastolic 29–75
--- NOTE | ~2018-09-07 | HC ---
[facility] [place] [address] CONSULTATION Name: HORTENCIA PATEL Colby Room #: 239-P ADM IN M.R.#: [id number] Admission: 09/07/18 ������������������ Attend Phys: Estefani Briceno MD Discharge: ������������������ Date of : 51 Report #: [id number] THIS REPORT FOR: //name// CC: Estefani Briceno [facility] REASON FOR CONSULTATION: Acute kidney injury. REASON FOR PRESENTATION: Altered mental status. HISTORY OF PRESENT ILLNESS: Those were obtained from the chart as the patient is currently having acute mental status changes and not able to provide me with the history. He is well known to us from a previous admission back in June. He was evaluated at that time by Dr. Jernigan, my partner. He was found to have bilateral obstructive stones. He is known to have diabetes mellitus, status post right above-knee amputation. During the previous hospitalization, he was septic from a urinary source. Creatinine at that time was 6.1. Dr. Jernigan has addressed appropriately with Interventional Radiology and he had bilateral nephrostomy tube placed. Creatinine upon discharge was 0.6. The patient was discharged to an LTAC facility and has continued to have his bilateral nephrostomy tubes. I am not really sure if his stone issues had been addressed or not. He represented yesterday with the above-mentioned issues and was found to have a creatinine of 5.9. He was septic. Blood cultures grew gram-negative rods. Previous blood cultures back in June was significant for Staph hominis. I am being consulted to manage his acute kidney injury. PAST MEDICAL HISTORY: Obtained from the medical chart due to the patient's current mental status; 1. Diabetes mellitus. 2. Multiple pressure ulcers on both buttocks. 3. Bilateral obstructive stones. 4. Back surgeries. 5. Obesity. 6. Right above-knee amputation. 7. Hepatitis C. 8. Hypertension. MEDICATIONS: 1. Lyrica. 2. Vitamin C. 3. Enoxaparin. 4. Flomax. 5. Levothyroxine. ALLERGIES: GABAPENTIN, HEPARIN, and CODEINE. FAMILY HISTORY: I am not able to obtain due to the patient's mental status. [facility] [address] [place] [address] CONSULTATION Name: HORTENCIA PATEL Room #: 239-P [facility].#: [id number] Admission: 09/07/18 ������������������ Attend Phys: Estefani Briceno MD Discharge: ������������������ Date of : 51 Report #: [id number] SOCIAL HISTORY: Single. He lives in a nursing facility. No other obtainable data. REVIEW OF SYSTEMS: Unobtainable given the patient's current mental status. PHYSICAL EXAMINATION: GENERAL: He is on BiPAP. VITAL SIGNS: Blood pressure is 106/63. He is febrile with a temperature of 38.9. HEAD AND NECK: No jugular venous distention. CHEST: Decreased air entry bilaterally. CARDIOVASCULAR: Regular with no rub detected. ABDOMEN: Soft and nontender. Bilateral nephrostomy tube present with no output. LOWER EXTREMITIES: Right above-knee amputation. Wounds over the left knee. Wounds over the buttocks. LABORATORY DATA: White blood cell count is down to 14.2 from 17,000. Blood gas with a pH of 7.3. Sodium 143, potassium 5.2, BUN is 79 up from 73. Creatinine is down to 5.1. Phosphorus is 5.8. Blood cultures, gram-negative rods. ASSESSMENT AND IMPRESSION AND PLAN: 1. Acute kidney injury. 2. Bilateral obstructive stones in the past with history of urosepsis. 3. Bilateral nephrostomy tube. 4. Severe sepsis and septic shock from urinary source. 5. Gram-negative rods in the blood. 6. Diabetes mellitus. 7. Pressure ulcers. 8. Acute kidney injury is well explained by his sepsis. I initiated him on sepsis protocol. I will reformulate his IV fluid to address his acidosis and hyperkalemia. 9. P.r.n. pressors. 10. Broad-spectrum antibiotic. 11. No evidence of hydronephrosis on the ultrasound and the nephrostomy tube will be addressed with Interventional Radiology. 12. Continue to address the other comorbid conditions as per the primary team. ��������������������������������������������� ���������������������������������������� By: ��������������������������������������������� 0601 9 Freddie Marin MD /nt
[~2018-09-07 10:50] MED LIST changes: +ALPRAZOLAM 0.50.5 M1 PO; +CARDURA4 MG PO; +CYCLOBENZAPRINE5 MG PO; +DILAUDID4 MG PO; +ENOXAPARIN40 MG/0.1 SUBQ; +IPRAT-ALBUT 0.5-3 ML INH; +LANTUS100 UNIT/M SUBQ; +METOPROLOL TART25 MG PO; +MUCINEX600 MG PO; +OXYCONTIN40 MG PO; +PRO-STAT LIQUID30 M1 PO; +THEREMS-M1 EACH PO; +VANCO 1 GR1 GM/250 M IVPB; +VITAMIN D2000 UNIT PO; +VITAMINC500 PO; +ZOSYN 3.373.375 GM/1 IV
[2018-09-07 11:24] LABS: URINE BLOOD 3+ (Negative); URINE CLARITY CLOUDY; URINE COLOR YELLOW; URINE GLUCOSE-RANDOM* NEGATIVE (Negative); URINE KETONES NEGATIVE (Negative); URINE NITRITE-REFLEX NEGATIVE (Negative); URINE PROTEIN (DIPSTICK) 3+ (Negative); URINE UROBILINOGEN 0.2 E.U./dl (0.2-1.0)
[2018-09-07 11:26] LABS: ICTOTEST (BILI CONFIRMATORY) Negative (Negative); URINE BILIRUBIN NEGATIVE (Negative); URINE LEUKOCYTES-REFLEX 3+ (Negative)
[2018-09-07 11:40] LABS: CASTS None Seen /LPF (None Seen); SQUAMOUS None Seen /LPF (0-3)
[2018-09-07 11:41] LABS: BACTERIA-REFLEX >30 Many /HPF (None Seen); CRYSTALS None Seen /LPF (None Seen); URINE RBC 0-2 Rare /HPF (0-2); URINE WBC-REFLEX >25 Many /HPF (0-5)
[2018-09-07 11:44] LABS: AMP/METHAMP Negative (Negative); BARBITURATES Negative (Negative); BENZODIAZEPINES Negative (Negative); COCAINE Negative (Negative); METHADONE Negative (Negative); OPIATES Negative (Negative); PCP Negative (Negative)
[2018-09-07 11:46] LABS: HEMATOCRIT 34.5 % (42.0-52.0); HEMOGLOBIN 11.2 gm/dL (14.0-18.0); MCH 25.2 pg (26.0-34.0); MCHC 32.4 g/dL (28.0-37.0); MCV 77.8 fL (80.0-100.0); RBC 4.44 mil/uL (4.50-6.00); RDW 19.3 % (10.5-14.5)
[2018-09-07 12:18] LABS: ANISOCYTOSIS 1+; PLATELET COUNT 210 thou/uL (150-400); PLATELET ESTIMATE NORMAL
[2018-09-07 12:52] LABS: ANION GAP 12 mmol/L (7-16); BUN 78 mg/dL (7-18); CALCIUM 7.5 mg/dL (8.5-10.1); CHLORIDE 106 mmol/L (98-107); CO2 23 mmol/L (21-32); CREATININE 5.9 mg/dL (0.7-1.3); GLUCOSE 263 mg/dL (74-106); POTASSIUM 5.2 mmol/L (3.5-5.1); SODIUM 141 mmol/L (136-145)
[2018-09-07 13:03] LABS: ALBUMIN 1.5 g/dL (3.4-5.0); MAGNESIUM 1.9 mg/dL (1.8-2.4); SGOT 44 U/L (15-37); SGPT 30 U/L (30-65); TOTAL BILIRUBIN 0.4 mg/dL (<0.1-1.0); TOTAL PROTEIN 6.2 g/dL (6.4-8.2); TROPONIN-I <0.06 ng/mL (<0.06)
--- NOTE | 2018-09-07 14:52 | NUR ---
CONSULTED TO PLACE A CENTRAL LINE FOR THIS PATIENT ADMITTING WITH RR DISTRESS, HYPOTENSION AND AMS. CONSENT BY MEDICAL NECESSITY PER DR. HUGGINS. THE RIGHT INTERNAL JUGULAR WAS WIDLEY PATENT. A #6F TRIPLE LUMEN POWER INJECTABLE JACC CENTRAL LINE WAS PLACED BY HOSPITAL POLICY AFTER A BEDSIDE TIMEOUT WAS COMPLETED. THE CENTRAL LINE WAS 25CM AND ADVANCED WITHOUT DIFFICULTY. A STAT CHEST XRAY SUGGESTED LINE BE WITHDRAWN A FEW CM. THIS WAS COMPLETED AND A 2ND CHEST XRAY WAS ORDERED. LINE SECURED AND RELEASED FOR USE
[2018-09-07 17:39] LABS: BE(vivo) -5.8 mmol/L (-2 to +3); HCO3 19.6 mmol/L (22.0-26.0); PCO2 38.2 mmHg (35.0-45.0); sO2 94.2 % (92.0-98.0)
[2018-09-07 17:41] LABS: pH 7.329 (7.360-7.450)
--- NOTE | 2018-09-07 20:03 | NUR ---
RECIEVED PATIENT FROM ER AT 1500, OPENS EYES TO TACTILE BUT DOES NOT SPEAK. FOLLOWED SIMPLE COMMANDS. SA ON MONITOR, SBP 80'S. SATS MID 90'S ON 2LNC. COURSE LUNGS THROUGHOUT WITH WEAK COUGH EFFORT. MULTIPLE PRESSURE WOUNDS OBSERVED AND PHOTOS TAKEN. LIJ TLC WITH GOOD BLOOD RETURN BUT WAITING ON VERIFIATION ON CXRY. GURROLA PATENT. INCONTINENT OF STOOL. TO SEE TRASH HAULER AND INFECTIOUS DISEASE DOCTORS.
[2018-09-07 21:58] LABS: CALCIUM 7.1 mg/dL (8.5-10.1); CREATININE 5.4 mg/dL (0.7-1.3); POTASSIUM 4.8 mmol/L (3.5-5.1)
[2018-09-07 22:07] LABS: APTT 36.4 Seconds (24.5-32.8); INR 1.3; PROTIME 13.4 Seconds (9.3-11.4)
[2018-09-07 22:12] LABS: FIBRINOGEN 463.1 mg/dL (210-360)
[2018-09-07] MEDS ORDERED: FLORASTOR250 MG PO (23:21)
[2018-09-07] MEDS ORDERED: PROZAC20 MG PO (23:22)
[2018-09-07] MEDS ORDERED: NYAMYC15 GM TOP (23:25)
[2018-09-07] MEDS ORDERED: MICONAZOLE NITR45 G3 TOP (23:26)
[2018-09-07] MEDS ORDERED: SSD CREAM 1% 5050 GM TOP (23:26)
[2018-09-07] MEDS ORDERED: MELATONIN3 MG PO (23:27)
[2018-09-07] MEDS ORDERED: SALONPAS PATCH1 EAC1 TRANSDERM (23:29)
[2018-09-07] MEDS ORDERED: FLOMAX0.4 MG PO (23:31)
[2018-09-08] VITALS (51 sets, daily range): BP systolic 85–126; BP diastolic 44–69
--- NOTE | 2018-09-08 03:08 | NUR ---
[facility] 12. LETHARGIC. OPENS EYES TO VOICE. FOLLOWS VERY SIMPLE COMMANDS AT TIMES. DOES NOT ANSWER ORIENTATION QUESTIONS. FEBRILE. ACETAMINIPHEN ADMINISTERED, ICE PACKS IN PLACE. LEVOPHED AND VASOPRESSIN GTT TO MAINTAIN MAP > 65. LUNGS COARSE TO AUSCULTATION. BIPAP PRN, OTHERWISE 2L PER NASAL CANNULA. BIPAP SETTINGS FOLLOWS: 03/05, RATE 16, FIO2 40%. HAVE NOT HEARD PT COUGH THIS SHIFT. PT DOES NOT COUGH WHEN ASKED. BILATERAL NEPHROSTOMY TUBES. NO URINE OUTPUT FROM NEPHROSTOMY TUBES. ADEQUATE URINE OUTPUT FROM GURROLA CATHETER. PT HAS MULTIPLE WOUNDS. PHOTOS ON CHART. LOCATION OF WOUNDS: -POSTERIOR NECK (SKIN TEAR) -LEFT HIP (ABRASION) -LEFT KNEE X2 (ABRASIONS) -RIGHT LOWER BACK (DEEP TISSUE INJURY) -LEFT BUTTOCK (DEEP TISSUE INJURY) -BILATERAL BUTTOCKS + GLUTEAL FOLDS (DEEP TISSUE INJURY)
[2018-09-08 04:03] LABS: HEMATOCRIT 31.7 % (42.0-52.0); MCH 24.9 pg (26.0-34.0); MCHC 31.6 g/dL (28.0-37.0); MCV 78.8 fL (80.0-100.0); RBC 4.03 mil/uL (4.50-6.00); RDW 19.2 % (10.5-14.5); WBC 14.2 thou/uL (4.0-11.0)
[2018-09-08 04:04] LABS: ALBUMIN 1.6 g/dL (3.4-5.0); CALCIUM 7.4 mg/dL (8.5-10.1); CREATININE 5.1 mg/dL (0.7-1.3); PHOSPHORUS 5.8 mg/dL (2.5-4.9); POTASSIUM 5.2 mmol/L (3.5-5.1)
--- NOTE | 2018-09-08 09:06 | EKG ---
[address] [place] [place] [address] ELECTROCARDIOGRAM REPORT Name: HORTENCIA PATEL Room #: 239-P ADM IN M.R.#: [id number] ������������������ Admission: 09/07/18 ������������������ Attend Phys: Estefani Briceno MD Discharge: ������������������ Date of : 51 Report #: [id number] ����������������������������������������������������������������� [id number] THIS REPORT FOR: //name// [facility] ED Test Date: 2018-09-07 Test Time: 11:13:21 Pat Name: HORTENCIA PATEL Department: Room: 239 Gender: M Caving Guide: KILO : 1955 Requested By: Juancho Schneider Order Number: [id number] MD: Alvarado Luna Measurements Intervals [place] Rate: 113 P: 55 OR: 147 QRS: 60 QRSD: 84 T: 21 QT: 323 QTc: 443 Interpretive Statements Sinus tachycardia Nonspecific ST segment abnormality Compared to ECG 07/03/2018 13:44:47 No significant change was found Electronically Signed On 09-08-2018 9:05:59 CDT by Alvarado Luna [email or web address] ��������������������������������������������� <ELECTRONICALLY SIGNED> ���������������������������������������� By: Alvarado Luna MD, [facility] ��������������������������������������������� 09/08/18904 12 Alvarado Luna MD, [facility] /EPI
[2018-09-08 14:25] LABS: BE(vivo) -2.7 mmol/L (-2 to +3); HCO3 20.6 mmol/L (22.0-26.0); PCO2 VENOUS 30.4 mmHg (41.0-51.0); PO2 VENOUS 40.3 mmHg (35.0-45.0)
[2018-09-08 14:44] LABS: ALBUMIN 1.7 g/dL (3.4-5.0); CALCIUM 7.4 mg/dL (8.5-10.1); PHOSPHORUS 4.8 mg/dL (2.5-4.9)
[2018-09-08 14:46] LABS: CREATININE 4.1 mg/dL (0.7-1.3); POTASSIUM 3.6 mmol/L (3.5-5.1)
--- NOTE | 2018-09-08 15:02 | NUR ---
WOUND CONSULT; ROUNDING WITH DR SHIPLEY AND SARAH MANAGER CUSTOMER SERVICE. MULIPLE WOUNDS OF VARIOUS STAGES OF HEALING AND SEVERITY WITH SMALL TO MODERATE SEROSANGUNOUS DRAINAGE. RECOMMENDATIONS; 1-POSTERIOR NECK ;AUTOMATIC DATA PROCESSING PLANNER 2-LEFT HIP; BOARDERED FOAM 3-LEFT KNEE X 2; BOARDERED FOAM 4-LEFT LAT ANKLE; BOARDERED FOAM 5-RIGHT LOWER BACK ;ZGUARD 6-LEFT BUTTOCKS/GLUTEAL FOLDS; ZGUARD 7-SACRUM; ZGUARD DISCUSSED WITH RN
--- NOTE | 2018-09-08 15:14 | NUR ---
PT ADMITTED RELATED TO SEVERE SEPSIS. CM REVIEWED CHART AND SPOKE WITH CARE TEAM. CM CALLED PT'S RAFAELA LUQUE. HE WASN'T AWARE THAT PT HAD BEEN ADMITTED. CM NOTIFIED THAT PT HAD ADMITTED YESTERDAY FROM [facility]. CM PROVIDED HIM WITH PT'S ROOM NUMBER. HE CONFIRMED THAT PT HAD BEEN AT [facility]' COUNSELOR. HE INDICATED THAT PT USES A WHEELCHAIR AND A EVAN LIFT TO ASSIST WITH MOBILITY AT [facility] AND THAT PT IS USUALLY A&O X1. HE INDICATED THAT HE VISITS PT THERE AT LEAST ONCE A WEEK. HE EXPRESSED SOME CARE CONCERNS ABOUT [facility] BUT INDICATED THAT HE ANTICIAPTED THAT PT WOULD LIKELY RETURN THERE ONCE MEDICALLY STABLE. HE INDICATED THAT PT HAD BEEN TO [facility] IN THE PSAT AND THAT HE WOULDN'T BE OPPOSED WITH PT GOING BACK THERE IS RECOMMENDED UPON DC. CM TO FOLLOW INDICATED WITH DC PLANNING.
--- NOTE | 2018-09-08 15:54 | HC ---
[facility] [place] [address] CONSULTATION Name: HORTENCIA PATEL Room #: 239-P [facility] IN M.R.#: [id number] Admission: 09/07/18 ������������������ Attend Phys: Estefani Briceno MD Discharge: ������������������ Date of : 51 Report #: [id number] THIS REPORT FOR: //name// CC: Estefani Briceno [facility] REFERRING PHYSICIAN: Estefani Briceno MD. REASON FOR REFERRAL: Severe sepsis. HISTORY OF PRESENT ILLNESS: The patient is a 62-year-old white male who was brought to the ED with altered mental status. He was found to be hypotensive, diaphoretic. He was felt to have urinary tract infection with sepsis. A pulmonary critical care consultation was requested. The patient is known to the Pulmonary Service. He was last hospitalized in 06/2018 for severe sepsis due to urinary tract infection. He has a history of bilateral ureteral stones, undergone bilateral nephrostomy tube placement at that time. He sustained acute kidney injury. He also had [id number] amputation several months ago. He is yet to have rehabilitation. As a result, he has been bedridden. Overnight, the patient had been hypotensive requiring multiple vasopressors. Urine output is adequate. He is somnolent, but responsive. He is tolerating BiPAP. PAST MEDICAL HISTORY: As mentioned above, history of diabetes mellitus, hepatitis C, hypertension, benign prostatic hypertrophy, anxiety disorder, cellulitis. PAST SURGICAL HISTORY: Includes AKA, right leg a few months ago; multiple back surgeries x 7; prior knee surgery; multiple abdominal surgeries; cervical spine fusion in 2004 involving C5-C6, C6-C7. ALLERGIES: MULTIPLE INCLUDING CODEINE, WHICH CAUSED RESPIRATORY FAILURE. FENTANYL CAUSES HALLUCINATION. HEPARIN CAUSES CONFUSION. MORPHINE CAUSES HALLUCINATIONS. NONSTEROIDAL CAUSES HALLUCINATIONS. MEDICATIONS: From the facility are reviewed. This includes Lantus supplements, Zosyn, vancomycin, metoprolol 25 mg p.o. b.i.d., Cardura 8 mg once a day, Lovenox 40 mg subcutaneous b.i.d., alprazolam 0.5 mg p.o. t.i.d., Colace 100 mg p.o. b.i.d., Synthroid 88 mcg once a day, Lyrica 100 mg p.o. b.i.d., Flomax 0.4 mg p.o. b.i.d., multivitamin, trazodone 50 mg p.o. at bedtime, vitamin C 500 mg once a day, vitamin D supplements, Dilaudid 4 mg p.o. q.4h. p.r.n., DuoNeb q.4h. p.r.n., MiraLax. FAMILY HISTORY: Noncontributory. [facility] [address] [place] [address] CONSULTATION Name: HORTENCIA PATEL Room #: 239-P [facility] IN M.R.#: [id number] Admission: 09/07/18 ������������������ Attend Phys: Estefani Briceno MD Discharge: ������������������ Date of : 51 Report #: [id number] SOCIAL HISTORY: No tobacco or alcohol use. REVIEW OF SYSTEMS: As mentioned above, otherwise not able to obtain adequate history. The patient is currently on BiPAP with altered mental status. PHYSICAL EXAMINATION: GENERAL: He is somnolent, arousable. VITAL SIGNS: Temperature is 99.2 degrees Fahrenheit, temperature maximum was 102.1, blood pressure has been as low as 85 mmHg systolic. It is currently 108/60 mmHg systolic, respiratory rate is 30, saturation 95%. HEENT: Normocephalic, atraumatic. NECK: Supple, without lymphadenopathy or thyromegaly. CHEST: Breath sounds are fair bilaterally. A few scattered crackles in the bases. CARDIOVASCULAR: Normal S1, S2. There are no murmurs or gallop. There is no JVD, no carotid bruit. Pulses are 2+/4+ bilaterally. ABDOMEN: Soft, nontender, no organomegaly or masses felt. GENITOURINARY: Deferred. RECTAL: Deferred. EXTREMITIES: No cyanosis or clubbing. Notable for right AKA, 1+ edema in the left lower extremity. NEUROLOGIC: He is somnolent, but arousable. LABORATORY DATA: Portable chest x-ray shows relatively clear lung wagoner. Urine drug screen was negative. Lactic acid was 2.2. Alcohol level was less than 10. TSH is 0.98. EKG shows sinus tachycardia, nonspecific ST wave changes. Procalcitonin level is 39. Sodium 142, potassium 5.2, chloride 109, CO2 is 18, BUN is 79, creatinine is 5.1. Liver enzymes are mildly abnormal. WBC 14,200, hemoglobin is 10. Arterial blood gas revealed pH 7.39, pCO2 38, pO2 75 on 2 liters of O2. IMPRESSION: 1. Urinary tract infection, severe sepsis. 2. Septic shock. 3. Acute kidney injury/chronic kidney disease. 4. Acute hypoxic respiratory failure due to above. 5. Worsening metabolic acidosis due to severe sepsis. 6. Bilateral ureteral stones, status post bilateral nephrostomy tube placed about few months ago. 7. Diabetes mellitus type 2. 8. Remote right vnxdn-lil-xplh amputation. RECOMMENDATION: Agree with sepsis protocol, vasopressors to maintain mean arterial pressure around 60 or systolic around 90. Monitor urine output closely. Renal is following the patient, bicarbonate has been added given her [facility] [address] [place] [address] CONSULTATION Name: HORTENCIA PATEL Room #: 239-P ADM IN M.R.#: [id number] Admission: 09/07/18 ������������������ Attend Phys: Estefani Briceno MD Discharge: ������������������ Date of : 51 Report #: [id number] worsening metabolic acidosis. We will continue BiPAP p.r.n., wean O2 for saturation 90%. DVT and GI prophylaxis recommended. Once clinically stable, we will need to address nutritional support. Thank you for this consultation. ��������������������������������������������� <ELECTRONICALLY SIGNED> ���������������������������������������� By: Johnny Aldridge MD ��������������������������������������������� 09/08/18 1554 [id number] Johnny Aldridge MD /nt
--- NOTE | 2018-09-08 19:32 | HC ---
[facility] [place] [address] CONSULTATION Name: HORTENCIA PATEL Colby Room #: 239-P ADM IN M.R.#: [id number] Admission: 09/07/18 ������������������ Attend Phys: Estefani Briceno MD Discharge: ������������������ Date of : 51 Report #: [id number] THIS REPORT FOR: //name// CC: Estefani Briceno [facility] DATE OF SERVICE: 09/07/2018 INFECTIOUS DISEASES CONSULTATION REASON FOR CONSULTATION: Evaluate septic shock. 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 He had a prolonged hospital stay with broad antibiotic coverage. He had Staphylococcus hominis bacteremia. He was on antibiotics when the nephrostomies were placed. Those cultures were negative. He had basilar infiltrates with MRSA growth. He had acute kidney injury, which did resolve following nephrostomy placement. He has underlying diabetes. [facility]. He then stabilized and was dismissed to senior living. Now he comes in with altered mental status and septic shock. He has been given IV fluids and full support in the ICU. He was able to awaken, but not able to give any meaningful history. He does have abdominal discomfort. He has had incontinence of liquid stool. He has had small volume urine output. He has had minimal output from his nephrostomy tubes. The right nephrostomy tube has come out some from his initial placement. He has had a loose cough. He is on 2 liters of oxygen per nasal cannula. He has received several liters of IV fluid and blood pressure now is up to 90/44. ALLERGIES: CODEINE, FENTANYL, GABAPENTIN, HEPARIN AND MORPHINE. MEDICATIONS: As noted on his MAY. He was given Zosyn initially, now on vancomycin and meropenem. Other medications as noted on his MAY. PAST MEDICAL HISTORY: Diabetes, hepatitis C, urinary retention, hypertension, BPH, anxiety, hyperlipidemia, ataxia, multiple abdominal surgeries, cervical fusion and left knee surgery. Previous right AKA. FAMILY HISTORY: Noncontributory. SOCIAL HISTORY: Current nonsmoker. No significant alcohol intake. REVIEW OF SYSTEMS: The patient was unable to give any further details, other than once that have been noted above. A 10-point review complete. PHYSICAL EXAMINATION: [facility] [address] [place] [address] CONSULTATION Name: HORTENCIA PATEL Room #: 239-P [facility] IN M.R.#: [id number] Admission: 09/07/18 ������������������ Attend Phys: Estefani Briceno MD Discharge: ������������������ Date of : 51 Report #: [id number] VITAL SIGNS: He was afebrile. Heart rate 106, blood pressure 90/44. He was on 2 liters of oxygen per nasal cannula. GENERAL: He was encephalopathic. He would awaken and follow commands; otherwise, would drift back off to sleep. SKIN: He had pressure wounds to his sacrum with ecchymosis and some skin breakdown. Right IJ catheter in place, with no erythema or drainage. HEENT: Eyes, without scleral icterus. No palpable adenopathy. Mouth was dry. NECK: Supple. LUNGS: Coarse breath sounds bilaterally, most of these were upper airway noise. HEART: Regular, without murmur, gallop or rub. He was tachycardic. ABDOMEN: Mildly distended. It was diffusely tender. He had bilateral nephrostomy tubes in place. The right side had pulled out several centimeters. There was minimal urine in the bags. He had no appreciable masses or hepatosplenomegaly. No CVA tenderness. BACK: Nontender. EXTERNAL GENITALIA: With no masses or lesions. He had an indwelling Larson catheter in place. RECTAL EXAMINATION: Not performed. He was incontinent of liquid stool in the bed. EXTREMITIES: Right AKA site was unremarkable, with no erythema or incisional breakdown. Left lower extremity without cyanosis. The patient was able to move all extremities. NEUROLOGIC: Cranial nerves intact. LABORATORY STUDIES: Ultrasound of the kidneys, no obstruction. Oxygen at 2 liters with an ABG with pO2 of 75, pCO2 of 38, pH of 7.3 and lactate was 2. Sodium 141, potassium 5.2, bicarbonate 23 and creatinine 5.9. Liver function test normal. Hemoglobin 11.2, platelet count 210,000, white count 17,000, segs 86% and bands 2%. Urinalysis with many wbc's and bacteria. Chest x-ray with left lower lobe atelectasis and infiltrate. Blood and urine cultures are pending. IMPRESSION: 1. A 62-year-old senior living resident with bilateral ureteral obstruction due to UPJ stones, with bilateral nephrostomy tubes. It does not appear that he has been able to follow up with Urology following his last hospital stay. Now, with recurrent urinary tract infection, I suspect this is source of sepsis. He has encephalopathy, acute kidney injury and low urine output. 2. Encephalopathy. 3. Diarrhea. 4. Pressure wounds. RECOMMENDATIONS: We will continue broad antibiotic coverage. Continue fluid resuscitation per Nephrology service. Blood pressure has been holding close to 100 now. Check stool for C. difficile PCR. Continue full ICU support. We will need Urology assistance. It appears, however, that the nephrostomy tubes are in [address] [address] CONSULTATION Name: HORTENCIA PATEL Room #: 239-P [facility] IN .R.#: [id number] Admission: 09/07/18 ������������������ Attend Phys: Estefani Briceno MD Discharge: ������������������ Date of : 53 Report #: [id number] It has been several months and would hopefully be able to consider further urologic procedure in the near future. At this point, however, the patient does not appear to be obstructed by ultrasound report. ��������������������������������������������� <ELECTRONICALLY SIGNED> ���������������������������������������� By: Juancho Humphreys MD ��������������������������������������������� 09/08/18 [phone] Juancho Humphreys MD /nt
[2018-09-09] VITALS (34 sets, daily range): BP systolic 97–126; BP diastolic 49–70
--- NOTE | 2018-09-09 03:33 | NUR ---
ASSUMED PT CARE AROUND 1900. PT CONFUSED, BUT IS ABLE TO COMMUNICATE NEEDS AND ANSWER SOME ORIENTATION QUESTIONS. VSS. AFEBRILE. BP STABLE WITH LEVOPHED GTT INFUSING. INCONTINENT OF STOOL. REPOSITIONED TO PREVENT FURTHER SKIN BREAKDOWN. O2 SATS STABLE ON 5-6L NC. PT SLEPT MOST OF THE NIGHT. FALL PRECAUTIONS IN PLACE. PROGRESSING SLOWLY TOWARD POC GOALS. WILL CONTINUE TO MONITOR FURTHER.
[2018-09-09 06:03] LABS: HEMATOCRIT 27.7 % (42.0-52.0); HEMOGLOBIN 9.2 gm/dL (14.0-18.0); MCH 25.7 pg (26.0-34.0); MCHC 33.2 g/dL (28.0-37.0); MCV 77.5 fL (80.0-100.0); RBC 3.57 mil/uL (4.50-6.00); WBC 6.4 thou/uL (4.0-11.0)
[2018-09-09 06:22] LABS: ALBUMIN 1.5 g/dL (3.4-5.0); CALCIUM 7.1 mg/dL (8.5-10.1); PHOSPHORUS 3.4 mg/dL (2.5-4.9)
[2018-09-09 06:26] LABS: CREATININE 2.9 mg/dL (0.7-1.3)
[2018-09-09 06:27] LABS: POTASSIUM 2.9 mmol/L (3.5-5.1)
--- NOTE | 2018-09-09 14:07 | NUR ---
ALERT ORIENTED TO NAME AND PLACE. VERY PLESANT. NEPHROSTOMY TUBES REMOVED IN IR. GURROLA WITH CLEAR YELLOW URINE OUT. GOOD APPETITE EATS WELL WITH ASSISTANCE WITH FEEDING. O2 AT 4L NASAL CANNULA. TURNED EVERY TWO HOURS. RIGHT IJ WITH FLUIDS, ANTIBIOTICS AND LEVOPHED INFUSING. LEVOPHED DOWN TO 8MCS. LUNGS CONGESTED AND COUGH NON PRODUCTIVE, SPECIMEN CUP IN ROOM FOR SPUTUM SAMPLE.
[2018-09-10] VITALS (22 sets, daily range): BP systolic 81–145; BP diastolic 40–72
[2018-09-10 03:41] LABS: ABSOLUTE NEUTROPHILS 4.7 thou/uL (1.4-8.2); HEMATOCRIT 26.9 % (42.0-52.0); HEMOGLOBIN 8.9 gm/dL (14.0-18.0); MCHC 33.1 g/dL (28.0-37.0); PLATELET COUNT 75 thou/uL (150-400); WBC 5.8 thou/uL (4.0-11.0)
[2018-09-10 03:43] LABS: BASOPHILS 0.3 % (0.0-2.0); EOSINOPHILS 0.1 % (0.0-3.0); LYMPHOCYTES 16.1 % (24.0-44.0); MCH 25.4 pg (26.0-34.0); MCV 76.8 fL (80.0-100.0); MONOCYTES 3.4 % (1.0-8.0); POLYS 80.1 % (36.0-66.0); RDW 18.5 % (10.5-14.5)
[2018-09-10 03:55] LABS: ALBUMIN 1.5 g/dL (3.4-5.0); CALCIUM 7.1 mg/dL (8.5-10.1); PHOSPHORUS 2.9 mg/dL (2.5-4.9); POTASSIUM 3.2 mmol/L (3.5-5.1)
[2018-09-10 03:56] LABS: CREATININE 1.8 mg/dL (0.7-1.3)
--- NOTE | 2018-09-10 06:01 | NUR ---
ASSUMED PT CARE AT 1900. VSS. PT A&0X4 FOR ME. PT ON 3L NC. HE ALSO SLEPT WITH THIS AND HE SATURATED WELL ALL NIGHT. PT HAS SKIN BREAKDOWN, ZGAURD APPLIED TO BOTTOM AFTER EACH CLEANING PT HAD 3 LOOSE/LIQUID BOWEL MOVEMENTS OVER NIGHT. PT BOWEL SOUNDS ARE HYPERACTIVE. PT COMMUNICATES NEEDS FINE AND HE IS ABLE TO FOLLOW COMMANDS. PT INCONTINENT OF BOTH, PT HAD 1700ML URINE OUTPUT OVERNIGHT NFROM HIS GURROLA. DRESSING CHANGE TO LEFT KNEE AND L BACK (NEPHROSTOMY TUBE REMOVAL SITE) PT IS STABLE, NO COMPLAINTS OF DISTRESS. SLEPT WELL FOR MOST OF THE NIGHT, WILL CONTINUE TO MONITOR PER POC. PT TRANSFERED TO POD 2 AT SHIFT CHANGE THIS AM.
[2018-09-11] VITALS (13 sets, daily range): BP systolic 98–124; BP diastolic 50–71
[2018-09-11 05:40] LABS: HEMATOCRIT 24.7 % (42.0-52.0); HEMOGLOBIN 8.1 gm/dL (14.0-18.0); MCH 25.1 pg (26.0-34.0); MCV 76.1 fL (80.0-100.0); RBC 3.24 mil/uL (4.50-6.00); RDW 18.5 % (10.5-14.5); WBC 4.2 thou/uL (4.0-11.0)
[2018-09-11 05:52] LABS: ALBUMIN 1.5 g/dL (3.4-5.0); CALCIUM 7.1 mg/dL (8.5-10.1); CREATININE 1.4 mg/dL (0.7-1.3); PHOSPHORUS 2.2 mg/dL (2.5-4.9)
[2018-09-11 05:54] LABS: POTASSIUM 2.7 mmol/L (3.5-5.1)
--- NOTE | 2018-09-11 07:04 | NUR ---
Pt. refused to turn and have temperature taken at beginning of shift despite explaining importance. He eventually allowed staff to help him reposition prn. O2 at 3L/NC then took off O2 stating he does not want it. Has maintained O2 sat greater than 90% in RA and no respiratory distress. Occasional cough. Afebrile , cont. on isolation precaution. Medicated for pain at HS then again this am. Complete bed bath given. Had large liquid stool , incontinent. He stayed awake most of the night. Critical K called to REDRYING MACHINE OPERATOR and orders received. Will continue to monitor.
--- NOTE | 2018-09-11 12:09 | NUR ---
DISCHARGE PLANNING. PATIENT IS [facility] RES[facility] AT [facility]. PLAN IS FOR PATIENT TO RETURN TO [facility] ONCE MEDICALLY READY. CLINICAL INFORMATION FAXED TO [facility]. CALL PLACED TO RAUL TO NOTIFY. FOLLOWING TO ASSIST WITH DISCHARGE.
--- NOTE | 2018-09-11 15:54 | NUR ---
report received from Gabriela/rn in icu @ 1250. pt arrived to room 364 @ 1510 via his bed. tele applied. vs taken. oxygen applied @ 4lt nc dt low oxygen saturation level. mullen intact, functional and emptied, stat lock applied. iv access intact to rt upper chest/neck. pt co chronic lower back pain, request pain medication. pt repositioned for comfort.
--- NOTE | 2018-09-11 20:12 | NUR ---
pt w/ need for assistance w/ meals, set up and partial feeding. pt w/ gross motor of yina, so spoon and fork 'built up' (w/ wash cloths and coban) for pt to use. pt noted to be very thirsty w/ meal, consuming ~ 1lt of fluid w/ dinner. pt very polite and grateful for the staff help w/ his meal and his incontinence clean up.
[2018-09-12 05:07] VITALS: BP 91/48
[2018-09-12 05:46] LABS: ALBUMIN 1.4 g/dL (3.4-5.0); CALCIUM 7.2 mg/dL (8.5-10.1); CREATININE 1.1 mg/dL (0.7-1.3); MAGNESIUM 1.9 mg/dL (1.8-2.4); PHOSPHORUS 1.9 mg/dL (2.5-4.9); POTASSIUM 3.2 mmol/L (3.5-5.1)
--- NOTE | 2018-09-12 07:37 | NUR ---
PATIENT I SADVANCING IN HIS CARE PLAN. VITAL SIGNS STABLE WITH PATIENT HAVING NO COMPLAINTS OF NAUSEA. PATIENT DID FREQUENTLY COMPLAIN OF PAIN WHICH WAS TREATED EFFECTIVELY THROUGH PRN MEDICATION. MOSTLY ORIENTED, PATIENT REQUIRS FREQUENT ROUNDING DUE TO INABILITY TO CALL EFFECTIVELY FOR NEEDS. FREQUENT TURNS WITH SKIN PROTECTED AND WOUNDS CHANGED PER PROTOCOL. CONTINUE PLAN OF CARE.
[2018-09-12 08:01] VITALS: BP 95/56
[2018-09-12 10:56] VITALS: BP 120/51
[2018-09-12 19:39] VITALS: BP 133/64
[2018-09-13 04:05] VITALS: BP 115/54
[2018-09-13 07:32] VITALS: BP 92/35
[2018-09-13 07:37] VITALS: BP 105/49
--- NOTE | 2018-09-13 08:03 | NUR ---
SLEPT MOST OF SHIFT. REPOSITIONED EVERY 2-3 HOURS. INCONTINENT OF STOOL AT TIMES. WORKING ON GOALS AND PLAN OF CARE FOR NOC. PROGRESSING SLOWLY TOWARDS DISCHARGE GOALS. PAIN MEDICATION GIVEN PRN NEEDED. DENIES COMPLAINTS OF SHORTNESS OF AIR. TELEMETRY SHOWS SR. VSS. CONTINUE TO ASSES.
[2018-09-13 11:17] VITALS: BP 102/58
[2018-09-13 16:54] VITALS: BP 98/48
[2018-09-13 19:50] VITALS: BP 98/55
--- NOTE | 2018-09-13 21:05 | NUR ---
Assumed pt care this am, pt has limited movement and complains of chronic pain managed by medication. Needs assistance when eating and uses utensils that are w/ a wash cloith and coban for easy woods superintendent. Pt always seems thirsty w/ meal, regulated fluid intake. Generalized edema still the same Q2 turns done with a wedge to help support. Informed hospitalist that bp would be in the 90's since he wants his pain medication on the dot. Wound care done, FC patent draining yellow urine, had a big loose BM. POC followed awaiting new orders as mentioned by Dr. Esteban. No verbalization nor signs of dristres has been noted.
[2018-09-14] VITALS: BP 99/45
[2018-09-14 04:13] VITALS: BP 106/48
--- NOTE | 2018-09-14 05:06 | NUR ---
RESTED QUIETLY MOST OF SHIFT. VSS. NO COMPLAINTS OF PAIN AT THIS TIME. WORKING ON GOALS AND PLAN OF CARE FOR NOC. TOLERATING FLUIDS WELL AND ASSISTED WITH HS SNACK LAST EVENING. PROGRESSING SLOWLY TOWARDS DISCHARGE GOALS. INCONTINENT LARGE AMOUNT LOOSE STOOL X1 THIS SHIFT. CONTINUE TO ASSES CLOESLY.
[2018-09-14 05:33] LABS: HEMATOCRIT 23.8 % (42.0-52.0); HEMOGLOBIN 7.8 gm/dL (14.0-18.0); MCH 25.4 pg (26.0-34.0); MCHC 32.8 g/dL (28.0-37.0); MCV 77.6 fL (80.0-100.0); RBC 3.06 mil/uL (4.50-6.00); RDW 18.1 % (10.5-14.5); WBC 9.3 thou/uL (4.0-11.0)
[2018-09-14 05:45] LABS: CALCIUM 7.6 mg/dL (8.5-10.1); CREATININE 0.9 mg/dL (0.7-1.3); POTASSIUM 3.2 mmol/L (3.5-5.1)
--- NOTE | 2018-09-14 07:56 | HC ---
[facility] [place] [address] CONSULTATION Name: HORTENCIA PATEL Colby Room #: 364-P ADM IN .R.#: [id number] Admission: 09/07/18 ������������������ Attend Phys: Estefani Briceno MD Discharge: ������������������ Date of : 51 Report #: [id number] THIS REPORT FOR: //name// CC: Estefani Briceno [facility] DATE OF SERVICE: 09/08/2018 CHIEF COMPLAINT: Multiple pressure ulcerations. HISTORY OF PRESENT ILLNESS: This is a 62-year-old male patient, who I believe, I have seen in the past, who has been admitted to the hospital with lethargy and diffuse wounds and I have been asked to see him with regard to wound care. He has significant encephalopathy. He is unable to provide much information about himself. He is in the Intensive Care Unit and receiving medical supportive care at present. PAST MEDICAL HISTORY: The patient's past medical history is positive for cellulitis, type 2 diabetes mellitus, hepatitis C, urinary retention, hypertension, benign prostatic hypertrophy, severe anxiety, hyperlipidemia, ataxia, previous back surgeries x 7 and cervical fusion. SOCIAL HISTORY: Unknown. FAMILY HISTORY: Unknown. ALLERGIES: THE PATIENT'S LISTED ALLERGIES INCLUDE CODEINE, FENTANYL, GABAPENTIN, HEPARIN, MORPHINE AND NONSTEROIDAL INFLAMMATORY AGENTS WELL. CURRENT MEDICATIONS: Include metoprolol, doxazosin, insulin, Lovenox, alprazolam, Colace, Synthroid, Lyrica, Pro-Stat, Flomax, Desyrel, vitamin C, vitamin D, Dilaudid, Zofran, MiraLax and senna. REVIEW OF SYSTEMS: Unobtainable. PHYSICAL EXAMINATION: VITAL SIGNS: The patient's vital signs at this time include temperature 36.8, pulse 106, respiratory rate 35 and blood pressure 107/56. GENERAL: This is a chronically ill-appearing male patient, who appears to be in minimal distress, but is mostly somnolent, awakens briefly, acknowledges some pain. HEENT: Examination of the head demonstrates what appears to be a deep tissue injury or possible ecchymosis to the occipital region of the scalp and then extending into the posterior neck. There is no evidence of cellulitis. SKIN: He has stage 3 pressure ulceration to the left anterior knee, unstageable pressure ulceration to the left lateral knee, both with dry eschar in place; [address] [address] CONSULTATION Name: HORTENCIA PATEL Room #: 364-P ADM IN M.R.#: [id number] Admission: 09/07/18 ������������������ Attend Phys: Estefani Briceno MD Discharge: ������������������ Date of : 51 Report #: [id number] stage 3 pressure ulceration to the left lateral ankle; unstageable pressure ulceration to the right lower back; deep tissue injuries to the left buttock, multiple and stage 3 pressure ulceration to the left hip. RECOMMENDATIONS: At this point in time, we will recommend Z-Guard to the gluteal region and otherwise open to air daily and p.r.n., bordered foam to the left anterior and lateral knee, left lateral ankle and left hip. The neck and scalp will need to be offloaded as much as possible. He will need to be turned and repositioned every 2 hours. Maintain maximum protein. PT, OT as able and continuation of current medications. I appreciate being asked to see him in consultation. ��������������������������������������������� <ELECTRONICALLY SIGNED> ���������������������������������������� By: Gilberto Metcalf MD ��������������������������������������������� 09/14/18 [id number] [id number] Gilberto Metcalf MD /nt
[2018-09-14 08:04] VITALS: BP 97/42
--- NOTE | 2018-09-14 10:38 | NUR ---
associate material handler SENT UPDATES TO [facility] MYLA LEVINE TEXTED RAUL AT FACILITY LETTING HER KNOW FAXED UPDATES ARE COMING, AND ASKED IF THEY WANT PATIENT TO COME BACK SKILLED, HE IS USUALLY LTC. ALSO LET HER KNOW PATIENT POSSIBLY READY TO DISCHARGE TODAY.
--- NOTE | 2018-09-14 10:50 | NUR ---
BLOCK GREASER SENT FACE SHEET TO [facility], PUT NOTE ASKING IF THEY COULD SEE PATIENT FOR SECONDARY MEDICAID CONTRERAS FOR PAYER'S SOURCE FOR LTC.
[2018-09-14 11:11] VITALS: BP 106/50
--- NOTE | 2018-09-14 12:13 | NUR ---
TOWARDS POC ASSUME CARE AT 077. VSS, AFERBILE. PAIN MANAGED BY MEDS. BP STILL LOW. PROVIDER NOTIFIED ABOUT PAIN MEDS VS BP. WOUND CARE AND DRESSING DONE. ISO MAINTAIN. WILL CONTINUE TO MONITOR.
--- NOTE | 2018-09-14 14:09 | NUR ---
WOUND CARE FOLLOW UP; ROUNDING WITH GLORIA SURGICAL SUPERVISOR AND SARAH FOURDRINIER OPERATOR. FOLLOW UP ASSESSMENT OF THE POSTERIOR HEAD IS SHOWS CLINICAL IMPROVEMENT. THE SACRUM, BACK, LEFT HIP, LEFT ANKLE AND LEFT KNEE ARE STABLE AT THIS TIME. THE PATIENT DEMONSTRATES NO S/S OF PAIN DURING OUR EVALUATION. RECOMMENDATION; CONTINUE CURRENT PLAN OF CARE.
[2018-09-14 15:32] VITALS: BP 117/51
--- NOTE | 2018-09-14 15:46 | NUR ---
MANDY reviewed chart and spoke with nursing and attending physician. Pt was transferred to 3 from ICU and is slowly progressing towards goals for discharge back to [facility]. meeting planner faxed updates to [facility] for review. [facility] would like for pt to return using his skilled benefit. MANDY spoke with pt's friend/DPOA, Blake Felton, via phone to provide update and confirm plan is for pt to return to [facility] when medically stable. Blake states that pt has not been in any other facilities since pt's discharge from [facility] back to [facility] on 07/09. MANDY discussed with UR RN to determine pt's Medicare days. MANDY is following to assist as needed with discharge planning.
--- NOTE | 2018-09-14 16:04 | NUR ---
PATIENT REFUSING ALL BREATHING TREATMENTS OVER THE LAST 3 DAYS, PLEASE CHANGE TO PRN ONLY
[2018-09-14 19:27] VITALS: BP 111/52
[2018-09-15 03:01] VITALS: BP 108/49
--- NOTE | 2018-09-15 03:13 | NUR ---
SLEPT PART OF SHIFT. TURNED EVERY 2-3 HOURS FOR COMFORT AND SKIN CARE. VSS. PAIN CONTROLLED BY PRN DILAUDID. WORKING ON GOALS AND PLAN OF CARE FOR NOC. Z GUARD USED FOR COCCYX WOUNDS. INCONTINENT AT TIMES OF LOOSE STOOL AT TIMES, AND DOES NOT KNOW WHEN HE GOES. PROGRESSING SLOWLY TOWARDS DISCHARGE TO SKILLED. CONTINUE TO ASSES CLOESLY. SOMETIMES REFUSES TO LET VS AND MEDS BE GIVEN. CONTINUE TO EXPLAIN AND EDUCATE.
[2018-09-15 05:58] LABS: HEMATOCRIT 23.4 % (42.0-52.0); HEMOGLOBIN 7.7 gm/dL (14.0-18.0); MCH 25.5 pg (26.0-34.0); MCHC 32.9 g/dL (28.0-37.0); MCV 77.6 fL (80.0-100.0); RBC 3.01 mil/uL (4.50-6.00); WBC 9.5 thou/uL (4.0-11.0)
[2018-09-15 08:09] VITALS: BP 121/51
[2018-09-15] MEDS ORDERED: CEFDINIR300 MG PO (09:56)
[2018-09-15] MEDS ORDERED: DILAUDID 2 MG TA2 MG PO (09:57)
[2018-09-15] MEDS ORDERED: ALPRAZOLAM 0.50.5 M1 PO (09:58)
--- NOTE | 2018-09-15 11:04 | NUR ---
Patient to dc today to [facility]. Patient will transport through ambulance [facility].
--- NOTE | 2018-09-15 12:21 | NUR ---
WOUND CARE FOLLOW UP; ROUNDING WITH DR YOKO WILKES AND SARAH EXTENSION AGENT. WOUNDS TO THE BACK OF THE HEAD, BACK, SACRUM, KNEE, AND HIP SHOW CLINICAL SIGNS OF IMPROVEMENT. CONTINUE PLAN OF CARE
--- NOTE | 2018-09-15 12:42 | NUR ---
DISCHARGE NOTE: SW reviewed chart and spoke with nursing and attending physician. Pt is medically stable for discharge back to [facility] today. supply chain planner coordinated and notified pt's DPOA. No additional SW needs identified at this time, but is available to assist should needs arise.
--- NOTE | 2018-09-15 16:40 | NUR ---
ASSUMED CARE OF PT AT APPROX 0700. PT IS ALERT AND ORIENTED X4, MONITORED ON TELE AND ABLE TO MAINTAIN 02 SAT >90. DENIES PAIN CURRENTLY. PT VERY FLAT. PT REFUSING TURNS AND NOON VITAL SIGNS. ASSESSMENT CHARTED. RECIEVED ORDER FOR DC. COMPLETED DC, UPDATED PT ON DC PLAN. CALLED REPORT TO FACILITY X2 AND STILL UNABLE TO GIVE REPORT. PT LEFT VIA EMS AT APPROX 1445. PT HAS MET POC GOALS OF DC.
== END 2018-09-15 14:51 | DRG 853 ==
LOC: ER 10:50 → EROBS 12:53 → ICU 12:53 → FCC 12:53 → EROBS 13:44 → ICU 15:20 → 3W 09-11 15:34
PROVIDERS: Emergency Medicine; Hospitalist; Internal Medicine; Internal Medicine Nephrology; Internal Medicine Pulmonary Disease; ADMIT Internal Medicine
DX: A41.89 Other specified sepsis (principal); L89.893 Pressure ulcer of other site, stage 3; L89.523 Pressure ulcer of left ankle, stage 3; L89.223 Pressure ulcer of left hip, stage 3; G93.41 Metabolic encephalopathy; E43 Unspecified severe protein-calorie malnutrition; R65.21 Severe sepsis with septic shock; J96.01 Acute respiratory failure with hypoxia; J18.9 Pneumonia, unspecified organism; N17.9 Acute kidney failure, unspecified; N39.0 Urinary tract infection, site not specified; Z68.42 Body mass index [BMI] 45.0-49.9, adult; L03.90 Cellulitis, unspecified; N13.8 Other obstructive and reflux uropathy; D61.818 Other pancytopenia; A41.9 Sepsis, unspecified organism; Z66 Do not resuscitate; F41.9 Anxiety disorder, unspecified; F32.9 Major depressive disorder, single episode, unspecified; E78.5 Hyperlipidemia, unspecified; E87.5 Hyperkalemia; I95.9 Hypotension, unspecified; E11.65 Type 2 diabetes mellitus with hyperglycemia; L89.130 Pressure ulcer of right lower back, unstageable; L89.329 Pressure ulcer of left buttock, unspecified stage; L89.319 Pressure ulcer of right buttock, unspecified stage; E11.40 Type 2 diabetes mellitus with diabetic neuropathy, unspecified; B96.89 Other specified bacterial agents as the cause of diseases classified elsewhere; E66.9 Obesity, unspecified; L89.899 Pressure ulcer of other site, unspecified stage; N18.9 Chronic kidney disease, unspecified; I12.9 Hypertensive chronic kidney disease with stage 1 through stage 4 chronic kidney disease, or unspecified chronic kidney disease; E11.22 Type 2 diabetes mellitus with diabetic chronic kidney disease; A41.50 Gram-negative sepsis, unspecified; N40.1 Benign prostatic hyperplasia with lower urinary tract symptoms; B96.20 Unspecified Escherichia coli [E. coli] as the cause of diseases classified elsewhere; B96.1 Klebsiella pneumoniae [K. pneumoniae] as the cause of diseases classified elsewhere; E87.6 Hypokalemia; Z86.19 Personal history of other infectious and parasitic diseases; Z98.1 Arthrodesis status; Z79.4 Long term (current) use of insulin; Z79.899 Other long term (current) drug therapy; Z88.6 Allergy status to analgesic agent; Z88.8 Allergy status to other drugs, medicaments and biological substances; Z93.6 Other artificial openings of urinary tract status; Z89.611 Acquired absence of right leg above knee; Z74.01 Bed confinement status
CPT/HCPCS: 10078; 10879

== ENCOUNTER 2018-09-18 22:40 | Emergency (ER) | payer OTHER, MEDICARE ==
[~2018-09-18] VITALS: Ht 180.3 cm; Wt 94.3 kg
[~2018-09-18 22:40] MED LIST changes: +CEFDINIR300 MG PO; +DILAUDID 2 MG TA2 MG PO; +FLORASTOR250 MG PO; +MELATONIN3 MG PO; +MICONAZOLE NITR45 G3 TOP; +NYAMYC15 GM TOP; +PROZAC20 MG PO; +SALONPAS PATCH1 EAC1 TRANSDERM; +SSD CREAM 1% 5050 GM TOP
[2018-09-18] MEDS ORDERED: CARDURA4 MG PO (23:12)
[2018-09-18] MEDS ORDERED: [UNRECOGNIZED DRUG - OTHER] PO (23:16)
[2018-09-18] MEDS ORDERED: FLORASTOR250 MG PO (23:28)
[2018-09-18 23:44] LABS: URINE BILIRUBIN NEGATIVE (Negative); URINE BLOOD TRACE (Negative); URINE CLARITY CLEAR; URINE COLOR YELLOW; URINE GLUCOSE-RANDOM* NEGATIVE (Negative); URINE KETONES NEGATIVE (Negative); URINE NITRITE-REFLEX NEGATIVE (Negative); URINE PROTEIN (DIPSTICK) TRACE (Negative)
[2018-09-18 23:51] LABS: URINE LEUKOCYTES-REFLEX 2+ (Negative)
[2018-09-18 23:58] LABS: HEMATOCRIT 23.7 % (42.0-52.0); HEMOGLOBIN 7.7 gm/dL (14.0-18.0); MCH 25.5 pg (26.0-34.0); MCHC 32.5 g/dL (28.0-37.0); MCV 78.4 fL (80.0-100.0); RBC 3.03 mil/uL (4.50-6.00); RDW 18.1 % (10.5-14.5); WBC 9.8 thou/uL (4.0-11.0)
[2018-09-19 00:03] LABS: YEAST-REFLEX Present (None Seen)
[2018-09-19 00:04] LABS: CASTS None Seen /LPF (None Seen); MUCUS None Seen strn/LPF (None Seen); SQUAMOUS None Seen /LPF (0-3)
[2018-09-19 00:05] LABS: BACTERIA-REFLEX None Seen /HPF (None Seen); CRYSTALS None Seen /LPF (None Seen); URINE RBC 3-10 Few /HPF (0-2); URINE WBC-REFLEX >25 Many /HPF (0-5)
[2018-09-19 00:12] LABS: ALBUMIN 1.5 g/dL (3.4-5.0); CALCIUM 7.1 mg/dL (8.5-10.1); CREATININE 0.7 mg/dL (0.7-1.3); DIRECT BILIRUBIN 0.1 mg/dL (<0.1-0.3); TOTAL BILIRUBIN 0.3 mg/dL (<0.1-1.0); TOTAL PROTEIN 6.1 g/dL (6.4-8.2)
[2018-09-19 00:19] LABS: POTASSIUM 2.5 mmol/L (3.5-5.1)
[2018-09-19] MEDS ORDERED: POTASSIUM20 PO (01:40)
[2018-09-19 02:52] VITALS: BP 104/50
== END 2018-09-19 03:42 | disposition home or self-care (01) ==
LOC: ER 22:40
PROVIDERS: Emergency Medicine
DX: E87.6 Hypokalemia (principal); Z48.01 Encounter for change or removal of surgical wound dressing; E11.9 Type 2 diabetes mellitus without complications; I10 Essential (primary) hypertension; E78.5 Hyperlipidemia, unspecified; Z88.5 Allergy status to narcotic agent; Z88.4 Allergy status to anesthetic agent; Z88.8 Allergy status to other drugs, medicaments and biological substances; Z79.4 Long term (current) use of insulin